=== PATIENT | female | born 1985 | race Caucasian/White ===

== ENCOUNTER → 2018-12-21 | Outpatient (CLI) | payer OTHER ==
[2018-12-21 16:34] LABS: BASO # 0.1 10^3/uL (0.0-0.2); BASO % 0.9 % (0.0-1.0); EOS # 0.1 10^3/uL (0.0-0.50); EOS % 0.7 % (0.0-3.0); HEMATOCRIT 44.3 % (36.0-47.0); HEMOGLOBIN 14.5 g/dl (12.0-15.5); LYMPH # 1.6 10^3/uL (1.5-4.5); LYMPH % 23.3 % (24.0-44.0); MEAN CORPUSCULAR HEMOGLOBIN 29.7 pg (27.0-33.0); MEAN CORPUSCULAR HGB CONC 32.7 g/dl (32.0-36.5); MEAN CORPUSCULAR VOLUME 90.8 fl (80.0-96.0); MONO # 0.5 10^3/uL (0.0-0.8); MONO % 7.7 % (0.0-5.0); NEUTROPHILS # 4.7 10^3/uL (1.8-7.7); NEUTROPHILS % 66.8 % (36.0-66.0); PLATELET COUNT, AUTOMATED 345 10^3/uL (150-450); RED BLOOD COUNT 4.88 10^6/uL (4.00-5.40)
[2018-12-21 16:45] LABS: ALT/SGPT 20 U/L (12-78); BILIRUBIN,TOTAL 0.5 MG/DL (0.2-1.0); BLOOD UREA NITROGEN 13 MG/DL (7-18); CALCIUM LEVEL 8.4 MG/DL (8.5-10.1); CARBON DIOXIDE LEVEL 26 MEQ/L (21-32); CHLORIDE LEVEL 104 MEQ/L (98-107); CREATININE FOR GFR 0.71 MG/DL (0.55-1.30); FERRITIN 24 NG/ML (8-252); FREE T3 2.8 PG/ML (2.2-4.0); GLOMERULAR FILTRATION RATE > 60.0 (>60); GLUCOSE, FASTING 89 MG/DL (70-100); IRON (FE) 105 UG/DL (50-170); PERCENT SATURATION 22.8 % (13.2-45.0); POTASSIUM SERUM 4.5 MEQ/L (3.5-5.1); SODIUM LEVEL 137 MEQ/L (136-145); TOTAL IRON BINDING CAPACITY 461 UG/DL (250-450); TOTAL PROTEIN 7.5 GM/DL (6.4-8.2)
== END ==
LOC: M LRY 09:36
PROVIDERS: ATTEND Family Medicine
DX: E03.9 Hypothyroidism, unspecified (principal); N94.6 Dysmenorrhea, unspecified

== ENCOUNTER → 2018-12-31 | Outpatient (CLI) | payer OTHER ==
--- NOTE | 2019-01-04 08:45 | SLEEPHOME ---
DATE OF STUDY: 12/31/2018 ORDERED BY: MELISA Wright Diagnostic home sleep testing was performed due to concern for the obstructive sleep apnea syndrome in this patient with excessive somnolence and [place] sleepiness score of 9. For testing, a nocturnal T3 respiratory monitoring device was used. Continuous record was made of pulse, oxygen saturation, airflow, chest and abdominal strain and body position. 11 hours and 30 minutes of data were reviewed. There were 8 hours and 10 minutes marked as time in bed. During the interval marked time in bed, there were 45 respiratory events identified of 10 seconds in duration or greater for a respiratory event index of 5.5. The events were primarily obstructive and more frequently associated with the supine posture. Baseline saturation was 94% and saturations fell briefly to 89%. Testing was performed in both the supine and nonsupine positions. IMPRESSION: Abnormal home sleep testing with repetitive respiratory events and oxygen desaturations to 89% with a respiratory event index of 5.5 is consistent with the obstructive sleep apnea syndrome. RECOMMENDATION: As the patient's events are primarily associated with the supine posture, sleep position retraining for avoidance of the supine posture may be sufficient to address the problem. If symptoms persist, the patient should be encouraged to undergo formal sleep evaluation.
== END ==
LOC: M SLEEP HO 12-26 09:48 → EDUNIT# 12-26 10:00 → M SLEEP HO 11:27
PROVIDERS: ATTEND Physician Assistant
DX: G47.8 Other sleep disorders (principal)

== ENCOUNTER → 2019-03-14 | Outpatient (CLI) | payer OTHER ==
[2019-03-14 17:08] LABS: BLOOD UREA NITROGEN 11 MG/DL (7-18); CALCIUM LEVEL 8.6 MG/DL (8.5-10.1); CARBON DIOXIDE LEVEL 26 MEQ/L (21-32); CHLORIDE LEVEL 108 MEQ/L (98-107); CREATININE FOR GFR 0.78 MG/DL (0.55-1.30); FREE T4 1.05 NG/DL (0.76-1.46); GLOMERULAR FILTRATION RATE > 60.0 (>60); GLUCOSE, FASTING 87 MG/DL (70-100); POTASSIUM SERUM 4.1 MEQ/L (3.5-5.1); SODIUM LEVEL 140 MEQ/L (136-145); THYROID STIMULATING HORMONE 0.445 uIU/ML (0.358-3.740)
[2019-03-14 17:10] LABS: TOTAL 25(OH) VITAMIN D 26.9 NG/ML (30.0-100.0)
[2019-03-18 07:22] LABS: THYROID STIMULATING IMMUNOGLOB <0.10 IU/L (0.00-0.55); TSH RECEPTOR ASSAY <1.10 IU/L (0.00-1.75)
== END ==
LOC: M LRY 14:25
PROVIDERS: ATTEND Internal Medicine Endocrinology, Diabetes & Metabolism
DX: E89.0 Postprocedural hypothyroidism (principal); E83.51 Hypocalcemia

== ENCOUNTER → 2019-05-13 | Outpatient (CLI) | payer OTHER ==
[2019-05-13 17:05] LABS: FREE T4 1.13 NG/DL (0.76-1.46); THYROID STIMULATING HORMONE 7.27 uIU/ML (0.358-3.740)
== END ==
LOC: M LRY 11:07
PROVIDERS: ATTEND Nurse Practitioner Family
DX: E89.0 Postprocedural hypothyroidism (principal)

== ENCOUNTER → 2019-05-21 | Outpatient (CLI) | payer OTHER | LOC: M RADPRO 07:36 | PROVIDERS: ATTEND Obstetrics & Gynecology | DX: N97.9 Female infertility, unspecified (principal); Z53.8 Procedure and treatment not carried out for other reasons ==

== ENCOUNTER → 2019-05-28 | Outpatient (CLI) | payer OTHER ==
--- NOTE | 2019-05-29 08:52 | REP ---
Transvaginal Hysterosonography: History: Infertility. Findings: Transvaginal sonographic dimensions of the uterus are 7.9 x 3.8 x 5.1 cm. Endometrial echo is 0.6 cm in thickness. There is evidence of an anterior myometrial scar at the lower uterine segment from previous . The endometrial cavity is normal with saline distension during the Hysterosonography injection performed by Dr. Post. Normal ovaries are seen. Right ovary measures 2.6 x 2.5 x 2.5 cm. Left ovary dimensions are 2.6 x 2.0 x 2.0 cm. Impression: Prior scar lower uterine segment. Otherwise unremarkable. Electronically Signed by Jose Eduardo Quezada MD 05/29/2019 09:26 A
== END ==
LOC: M RADPRO 11:59
PROVIDERS: ATTEND Obstetrics & Gynecology
DX: N97.9 Female infertility, unspecified (principal)

== ENCOUNTER → 2019-06-19 | Outpatient (CLI) | payer OTHER ==
--- NOTE | 2019-06-19 11:52 | REP ---
Transvaginal pelvic sonography: History: Ovarian follicle study. Findings: Uterine dimensions are 10.2 x 3.6 x 5.4 cm. Endometrial stripe is 1.1 cm thick and centrally placed. No focal uterine mass seen. No free fluid is noted. Right ovary measures 2.0 x 1.5 x 1.7 cm in overall dimension. There are no follicles in the right ovary over a centimeter. There are multiple subcentimeter follicles in the right ovary. The overall dimensions of the left ovary are 3.3 x 1.5 x 2.5 cm. There are no follicles greater than a centimeter in the left ovary. There are multiple subcentimeter follicles in the left ovary. Impression: Ovarian follicle study as above. No follicles in either ovary measuring greater than 1 cm. Electronically Signed by Jose Eduardo Qeuzada MD 06/19/2019 11:44 A
== END ==
LOC: M WHC 09:06
PROVIDERS: ATTEND Obstetrics & Gynecology Reproductive Endocrinology
DX: N97.1 Female infertility of tubal origin (principal)

== ENCOUNTER → 2019-07-01 | Outpatient (CLI) | payer OTHER | LOC: M LAB 06:48 | PROVIDERS: ATTEND Obstetrics & Gynecology Reproductive Endocrinology | DX: N91.1 Secondary amenorrhea (principal) ==

== ENCOUNTER → 2019-07-03 | Outpatient (CLI) | payer OTHER | LOC: M LAB 07:42 | PROVIDERS: ATTEND Obstetrics & Gynecology Reproductive Endocrinology | DX: N91.1 Secondary amenorrhea (principal) ==

== ENCOUNTER → 2019-07-11 | Outpatient (CLI) | payer OTHER ==
[~2019-07-11] MED LIST: ESTR1DIS; KEFL500C17 PO; PROG50IN5; prenatal
[2019-07-11 12:07] LABS: FREE T4 1.22 NG/DL (0.76-1.46); THYROID STIMULATING HORMONE 1.85 uIU/ML (0.358-3.740)
== END ==
LOC: M LRY 10:02
PROVIDERS: ATTEND Nurse Practitioner Family
DX: E89.0 Postprocedural hypothyroidism (principal)

== ENCOUNTER 2019-07-15 15:09 | Emergency (ER) | payer OTHER ==
[~2019-07-15] VITALS: Ht 162.6 cm; Wt 95.6 kg
[2019-07-15] MEDS ORDERED: prenatal (15:16)
[2019-07-15] MEDS ORDERED: PROG50IN5 (15:16)
[2019-07-15] MEDS ORDERED: ESTR1DIS (15:16)
[2019-07-15 16:12] LABS: BASO % 0.3 % (0.0-1.0); EOS # 0.2 10^3/uL (0.0-0.5); EOS % 1.7 % (0.0-3.0); LYMPH # 1.9 10^3/uL (1.5-5.0); LYMPH % 17.3 % (24.0-44.0); MEAN CORPUSCULAR HEMOGLOBIN 30.4 pg (27.0-33.0); MEAN CORPUSCULAR HGB CONC 34.1 g/dl (32.0-36.5); MEAN CORPUSCULAR VOLUME 89.1 fl (80.0-96.0); MONO # 0.7 10^3/uL (0.0-0.8); MONO % 6.5 % (0.0-5.0); NEUTROPHILS # 8.1 10^3/uL (1.5-8.5); NEUTROPHILS % 73.9 % (36.0-66.0); PLATELET COUNT, AUTOMATED 394 10^3/uL (150-450); WHITE BLOOD COUNT 10.9 10^3/uL (4.0-10.0)
--- NOTE | 2019-07-15 16:37 | REP ---
Clinical: Dating and viability. Technique: Transabdominal and transvaginal first trimester obstetrical ultrasound with color Doppler evaluation. Findings: Heterogeneous anteverted uterus measures 10.9 x 4.4 x 6.1 cm. Two separate gestational sacs are identified into which contains a yolk sac but no pole. Mean sac diameter of gestational sac A measures 5.8 mm and 5 weeks 2 days gestational age. Mean sac diameter of gestational sac B measures 9.6 mm at 5 weeks 5 days gestational age. Impression: Findings suggest early diamniotic dichorionic twin gestation. No pole yet identified in either gestational sac. Correlation with serial HCG levels and follow-up ultrasound recommended. Electronically Signed by Tom López MD 07/15/2019 04:27 P
[2019-07-15] MEDS ORDERED: KEFL500C17 PO (17:17)
[2019-07-15 17:27] VITALS: BP 137/83
== END 2019-07-15 17:29 | disposition home or self-care (01) ==
LOC: M ED 15:09
DX: O20.9 Hemorrhage in early pregnancy, unspecified (principal); O23.41 Unspecified infection of urinary tract in pregnancy, first trimester; O30.041 Twin pregnancy, dichorionic/diamniotic, first trimester; Z3A.01 Less than 8 weeks gestation of pregnancy

== ENCOUNTER → 2019-07-17 | Outpatient (CLI) | payer OTHER | LOC: M PLALAB 11:59 | PROVIDERS: ATTEND Obstetrics & Gynecology | DX: Z32.00 Encounter for pregnancy test, result unknown (principal) ==

== ENCOUNTER 2019-07-20 15:19 | Emergency (ER) | payer OTHER ==
[~2019-07-20] VITALS: Ht 162.6 cm; Wt 95.8 kg
[2019-07-20 16:21] LABS: BASO # 0.1 10^3/uL (0.0-0.2); BASO % 0.5 % (0.0-1.0); EOS # 0.1 10^3/uL (0.0-0.5); EOS % 0.9 % (0.0-3.0); HEMATOCRIT 41.1 % (36.0-47.0); HEMOGLOBIN 13.8 g/dl (12.0-15.5); LYMPH # 1.5 10^3/uL (1.5-5.0); LYMPH % 13.8 % (24.0-44.0); MEAN CORPUSCULAR HEMOGLOBIN 29.9 pg (27.0-33.0); MEAN CORPUSCULAR HGB CONC 33.6 g/dl (32.0-36.5); MEAN CORPUSCULAR VOLUME 89.2 fl (80.0-96.0); MONO # 0.7 10^3/uL (0.0-0.8); MONO % 6.7 % (0.0-5.0); NEUTROPHILS # 8.5 10^3/uL (1.5-8.5); NEUTROPHILS % 77.6 % (36.0-66.0); PLATELET COUNT, AUTOMATED 382 10^3/uL (150-450); RED BLOOD COUNT 4.61 10^6/uL (4.00-5.40); WHITE BLOOD COUNT 10.9 10^3/uL (4.0-10.0)
[2019-07-20 17:31] VITALS: BP 125/79
[2019-07-20 18:50] LABS: CHLAMYDIA DNA AMPLIFICATION NEGATIVE (NEGATIVE); GC DNA AMPLIFICATION NEGATIVE (NEGATIVE)
== END 2019-07-20 17:35 | disposition home or self-care (01) ==
LOC: M ED 15:19
DX: O20.0 Threatened abortion (principal); O99.511 Diseases of the respiratory system complicating pregnancy, first trimester; J45.909 Unspecified asthma, uncomplicated; Z3A.01 Less than 8 weeks gestation of pregnancy

== ENCOUNTER → 2019-07-22 | Outpatient (CLI) | payer OTHER ==
--- NOTE | 2019-07-22 12:42 | REP ---
TWIN OB ULTRASOUND: Real-time sonographic evaluation of the gravid uterus is performed utilizing transabdominal and endovaginal technique. There is a living intrauterine diamniotic dichorionic twin gestation. Estimated gestational age based on last menstrual period is 6 weeks 5 days, EDC 03/15/2020. Today's measurements indicate appropriate growth of both twins. Fetus A has a crown-rump length of 4 mm corresponding to 6 weeks 1 day gestational age, heart rate 130 beats per minute. Fetus B crown-rump length 4 mm equals 6 weeks 0 days, heart rate 146 beats per minute. Cervix is closed and measures 3.6 cm in length. There is no subchorionic hemorrhage. No maternal adnexal region abnormality is seen.
== END ==
LOC: M WHC 09:03
PROVIDERS: ATTEND Obstetrics & Gynecology
DX: Z32.01 Encounter for pregnancy test, result positive (principal); Z3A.01 Less than 8 weeks gestation of pregnancy

== ENCOUNTER → 2019-07-23 | Outpatient (REF) | payer OTHER ==
[2019-07-23 13:47] LABS: HEMATOCRIT 41.8 % (36.0-47.0); MEAN CORPUSCULAR HEMOGLOBIN 30.2 pg (27.0-33.0); MEAN CORPUSCULAR HGB CONC 33.5 g/dl (32.0-36.5); MEAN CORPUSCULAR VOLUME 90.3 fl (80.0-96.0); PLATELET COUNT, AUTOMATED 365 10^3/uL (150-450); RED BLOOD COUNT 4.63 10^6/uL (4.00-5.40); WHITE BLOOD COUNT 8.6 10^3/uL (4.0-10.0)
[2019-07-23 14:07] LABS: CREATININE,RANDOM URINE 30.7 MG/DL; TOTAL PROTEIN,RANDOM URINE < 5.0 MG/DL (0.0-12.0)
[2019-07-23 14:19] LABS: ALT/SGPT 22 U/L (12-78); BILIRUBIN,TOTAL 0.5 MG/DL (0.2-1.0); FREE T4 1.23 NG/DL (0.76-1.46); GLOMERULAR FILTRATION RATE > 60.0 (>60); LDH LACTATE DEHYDROGENASE 128 U/L (84-246); URIC ACID 4.4 MG/DL (2.6-6.0)
[2019-07-23 15:25] LABS: CHLAMYDIA DNA AMPLIFICATION NEGATIVE (NEGATIVE); GC DNA AMPLIFICATION NEGATIVE (NEGATIVE)
[2019-07-24 11:36] LABS: HEPATITIS B SURFACE ANTIGEN NEGATIVE (NEGATIVE); RUBELLA IgG QUALITATIVE IMMUNE (IMMUNE)
[2019-07-24 12:04] LABS: HEPATITIS C VIRUS ABY INDEX 0.1 INDEX (<0.8)
[2019-07-24 12:05] LABS: HIV 1&2 SCREEN CENTAUR NEGATIVE (NEGATIVE)
== END ==
LOC: M PLALAB 10:29
PROVIDERS: ATTEND Obstetrics & Gynecology
DX: O30.041 Twin pregnancy, dichorionic/diamniotic, first trimester (principal); O99.281 Endocrine, nutritional and metabolic diseases complicating pregnancy, first trimester; Z3A.00 Weeks of gestation of pregnancy not specified

== ENCOUNTER → 2019-08-16 | Outpatient (CLI) | payer OTHER ==
[2019-08-16 13:33] LABS: CALCIUM LEVEL 8.3 MG/DL (8.5-10.1); FREE T4 1.14 NG/DL (0.76-1.46); THYROID STIMULATING HORMONE 1.84 uIU/ML (0.358-3.740)
== END ==
LOC: M PLALAB 11:17
PROVIDERS: ATTEND Nurse Practitioner Family
DX: E83.51 Hypocalcemia (principal); E89.0 Postprocedural hypothyroidism

== ENCOUNTER → 2019-09-03 | Outpatient (CLI) | payer OTHER ==
[~2019-09-03] MED LIST changes: +CALC1CAP31 PO; +LEVO125T4; +holter monitor; +prenatal PO
[2019-09-03 13:08] LABS: CALCIUM LEVEL 8.7 MG/DL (8.5-10.1); FREE T4 1.26 NG/DL (0.76-1.46); THYROID STIMULATING HORMONE 2.41 uIU/ML (0.358-3.740)
== END ==
LOC: M PLALAB 11:24
PROVIDERS: ATTEND Nurse Practitioner Family
DX: E89.0 Postprocedural hypothyroidism (principal); E83.51 Hypocalcemia
CPT/HCPCS: 36415; 82310; 84439; 84443; G0463

== ENCOUNTER 2019-09-05 10:49 | Emergency (ER) | payer OTHER ==
[~2019-09-05] VITALS: Ht 162.6 cm; Wt 94.4 kg
[~2019-09-05 10:49] MED LIST changes: -CALC1CAP31 PO; -LEVO125T4; -holter monitor; -prenatal PO
[2019-09-05] MEDS ORDERED: LEVO125T4 (10:57)
[2019-09-05] MEDS ORDERED: CALC1CAP31 PO (11:06)
[2019-09-05] MEDS ORDERED: prenatal PO (11:06)
[2019-09-05] MEDS ORDERED: NS 1,000 ML IV ONE (11:15)
[2019-09-05] MEDS ORDERED: METOCLOPRAMIDE INJ 10MG/2ML VIAL (J2765 PER 1) IV ONE (11:15)
[2019-09-05 11:30] LABS: BASO % 0.2 % (0.0-1.0); EOS % 0.1 % (0.0-3.0); HEMATOCRIT 38.4 % (36.0-47.0); HEMOGLOBIN 13.3 g/dl (12.0-15.5); LYMPH # 0.9 10^3/uL (1.5-5.0); MEAN CORPUSCULAR HEMOGLOBIN 30.5 pg (27.0-33.0); MEAN CORPUSCULAR HGB CONC 34.6 g/dl (32.0-36.5); MEAN CORPUSCULAR VOLUME 88.1 fl (80.0-96.0); MONO # 0.4 10^3/uL (0.0-0.8); MONO % 3.7 % (0.0-5.0); NEUTROPHILS # 10.1 10^3/uL (1.5-8.5); NEUTROPHILS % 87.5 % (36.0-66.0); PLATELET COUNT, AUTOMATED 301 10^3/uL (150-450); RED BLOOD COUNT 4.36 10^6/uL (4.00-5.40); WHITE BLOOD COUNT 11.5 10^3/uL (4.0-10.0)
[2019-09-05 12:07] LABS: ALBUMIN 3.1 GM/DL (3.2-5.2); ALT/SGPT 14 U/L (12-78); BILIRUBIN,DIRECT 0.1 MG/DL (0.0-0.2); BILIRUBIN,TOTAL 0.4 MG/DL (0.2-1.0); BLOOD UREA NITROGEN 7 MG/DL (7-18); CALCIUM LEVEL 8.5 MG/DL (8.5-10.1); CARBON DIOXIDE LEVEL 23 MEQ/L (21-32); CHLORIDE LEVEL 106 MEQ/L (98-107); CREATININE FOR GFR 0.49 MG/DL (0.55-1.30); GLOMERULAR FILTRATION RATE > 60.0 (>60); GLUCOSE, FASTING 95 MG/DL (70-100); MAGNESIUM LEVEL 1.6 MG/DL (1.8-2.4); POTASSIUM SERUM 3.9 MEQ/L (3.5-5.1); SODIUM LEVEL 138 MEQ/L (136-145); TOTAL PROTEIN 6.6 GM/DL (6.4-8.2)
[2019-09-05 12:31] LABS: APPEARANCE, URINE HAZY (CLEAR); BACTERIA, URINE AUTO 2+ (NEGATIVE); BILIRUBIN, URINE AUTO NEGATIVE (NEGATIVE); BLOOD, URINE BLOOD NEGATIVE (NEGATIVE); COLOR, URINE YELLOW (YELLOW); GLUCOSE, URINE (UA) AUTO NEGATIVE (NEGATIVE); KETONE, URINE AUTO 2+ mg/dL (NEGATIVE); LEUKOCYTE ESTERASE, URINE AUTO NEGATIVE (NEGATIVE); MUCUS, URINE SMALL (NEGATIVE); NITRITE, URINE AUTO NEGATIVE (NEGATIVE); PROTEIN, URINE AUTO NEGATIVE (NEGATIVE); RBC, URINE AUTO 1 /HPF (0-3); SPECIFIC GRAVITY URINE AUTO 1.017 (1.002-1.035); SQUAMOUS EPITHELIAL CELL UR AU 1 /HPF (0-6); UROBILINOGEN, URINE AUTO 0.2 mg/dL (0.0-2.0); WBC, URINE AUTO 3 /HPF (0-3)
[2019-09-05] MEDS ORDERED: ACETAMINOPHEN 325 MG TAB PO ONE (12:45)
[2019-09-05] MEDS ORDERED: MAG SULF 1GM/100ML (MAG RUN) 1 GM in IV 1 EA IV ONE (12:45)
[2019-09-05] MEDS ORDERED: KEFL500C17 PO (14:50)
[2019-09-05] MEDS ORDERED: holter monitor (14:51)
[2019-09-05 15:17] VITALS: BP 135/86
--- NOTE | 2019-09-05 22:14 | ECGEPIP ---
[facility] - ED Test Date: 2019-09-05 Pat Name: RAINE MCKENZIE Department: Room: - Gender: Female Displayer: marina : 1985 Requested By: Yarelis Roa Order Number: [id number] Reading MD: Derek Rosario Measurements Intervals [place] Rate: 85 P: 21 KS: 120 QRS: 52 QRSD: 81 T: 4 QT: 364 QTc: 433 Interpretive Statements SINUS RHYTHM NSTTW ABNORMALITIES NO PRIORS FOR COMPARISON Electronically Signed on 09-05-2019 22:14:33 EDT by Derek Rosario
== END 2019-09-05 15:21 | disposition home or self-care (01) ==
LOC: M ED 10:49
DX: O99.89 Other specified diseases and conditions complicating pregnancy, childbirth and the puerperium (principal); R00.2 Palpitations; O99.511 Diseases of the respiratory system complicating pregnancy, first trimester; J45.909 Unspecified asthma, uncomplicated; O99.281 Endocrine, nutritional and metabolic diseases complicating pregnancy, first trimester; E05.00 Thyrotoxicosis with diffuse goiter without thyrotoxic crisis or storm; Z3A.13 13 weeks gestation of pregnancy; Z79.899 Other long term (current) drug therapy; Z79.890 Hormone replacement therapy
CPT/HCPCS: 80048; 80076; 81001; 83735; 84443; 85025; 87086; 93005; 93041; 94760; 96361; 96365; 96375; 99285; J2765; J3475

== ENCOUNTER → 2019-09-09 | Outpatient (CLI) | payer OTHER ==
[~2019-09-09] MED LIST changes: +CALC1CAP31 PO; +LEVO125T4; +holter monitor; +prenatal PO
--- NOTE | 2019-09-11 10:12 | HOLTMON ---
[facility] Test Date: 2019-09-09 Pat Name: RAINE MCKENZIE Department: Room: - Gender: Female Business Relations Manager: DARINEL GUZMAN : 1985 Requested By: Yarelis Roa Order Number: [id number] Reading MD: Tatum Munoz Interpretive Statements A LOT OF ARTIFACT THROUGH OUT HOLTER PATIENT STATES THAT SHE DIDN'T HAVE HER USUAL SYMPTOMS BUT FELT LIKE HER HEART WAS BEATING OUT OF HER CHEST Avg HR 89 Min 58 Max 156 Sinus throughout Multiple PACs Short runs (less than 5) Multiple diary entires one with a PAC and others with Sinus tacycardia Variable ST depression in leads II and III throughout rare PVC Electronically Signed on 09-11-2019 10:11:58 EDT by Tatum Munoz
== END ==
LOC: M EKG 09:03
PROVIDERS: ATTEND Emergency Medicine
DX: R00.2 Palpitations (principal)

== ENCOUNTER → 2019-10-10 | Outpatient (CLI) | payer OTHER ==
[2019-10-10 13:51] LABS: FREE T4 1.05 NG/DL (0.76-1.46); THYROID STIMULATING HORMONE 3.34 uIU/ML (0.358-3.740)
== END ==
LOC: M PLALAB 10:39
PROVIDERS: ATTEND Nurse Practitioner Family
DX: E89.0 Postprocedural hypothyroidism (principal)
CPT/HCPCS: 36415; 84439; 84443; G0463

== ENCOUNTER → 2019-11-01 | Outpatient (REF) | payer OTHER ==
[~2019-11-01] MED LIST changes: +LEVO137T2 PO
== END ==
LOC: M SFHCWAGY 17:10
PROVIDERS: ATTEND Advanced Practice Midwife
DX: Z36.89 Encounter for other specified antenatal screening (principal); Z3A.21 21 weeks gestation of pregnancy

== ENCOUNTER → 2019-11-08 | Outpatient (CLI) | payer OTHER ==
--- NOTE | 2019-11-09 08:13 | REP ---
TWIN OB ULTRASOUND: Real-time sonographic evaluation of gravid uterus performed utilizing transabdominal and endovaginal technique and demonstrates a living diamniotic, dichorionic twin gestation. Placentas are posterior for Fetus A and anterior for Fetus B, grade 1, with no previa or abruption. Cervix is closed and measures 4.9 cm in length measured transvaginally. There is concordant growth of each twin, with estimated gestational age established at 22 weeks 2 days, EDC 03/11/2020. FETUS A: BPD 54 mm = 22 weeks 3 days, 53rd percentile HC 196 mm = 21 weeks 6 days, 36th percentile AC 164 mm = 21 weeks 3 days, 31st percentile Femur length 38 mm = 22 weeks 0 days, 43rd percentile HC/AC ratio 1.20, within normal range of 1.04 to 1.23 Estimated weight 446 grams, 28th percentile. heart rate 149 beats per minute. SEEN/GROSSLY UNREMARKABLE Lateral ventricles Yes Posterior fossa Yes Upper lip Yes Four-chamber heart No LVOT No RVOT No Stomach Yes Cord insertion Yes Three vessel cord Yes Kidneys Yes Bladder Yes Spine Yes position is transverse with head toward the maternal left side. Amniotic fluid within normal limits. FETUS B: BPD 52 mm = 21 weeks 5 days, 33rd percentile HC 195 mm = 21 weeks 5 days, 32nd percentile AC 173 mm = 22 weeks 2 days, 48th percentile Femur length 40 mm = 22 weeks 6 days, 64th percentile HC/AC ratio 1.13, within normal range of 1.04 to 1.23 Estimated weight 500 grams, 48th percentile. heart rate 149 beats per minute. SEEN/GROSSLY UNREMARKABLE Lateral ventricles Yes Posterior fossa Yes Upper lip Yes Four-chamber heart Yes LVOT Yes RVOT Yes Stomach Yes Cord insertion Yes Three vessel cord Yes Kidneys Yes Bladder Yes Spine No position variable on the maternal right side. Amniotic fluid appears within normal limits.
== END ==
LOC: M WHC 13:40
PROVIDERS: ATTEND Obstetrics & Gynecology
DX: O30.042 Twin pregnancy, dichorionic/diamniotic, second trimester (principal); Z3A.22 22 weeks gestation of pregnancy; O34.211 Maternal care for low transverse scar from previous cesarean delivery

== ENCOUNTER → 2019-11-12 | Outpatient (CLI) | payer OTHER ==
[2019-11-12 15:57] LABS: FREE T4 1.04 NG/DL (0.76-1.46); THYROID STIMULATING HORMONE 0.593 uIU/ML (0.358-3.740)
== END ==
LOC: M PLALAB 13:46
PROVIDERS: ATTEND Nurse Practitioner Family
DX: E89.0 Postprocedural hypothyroidism (principal); O30.042 Twin pregnancy, dichorionic/diamniotic, second trimester

== ENCOUNTER → 2019-12-03 | Outpatient (REF) | payer OTHER ==
[2020-01-05 10:55] LABS: BASO % 0.3 % (0.0-1.0); EOS % 0.3 % (0.0-3.0); HEMATOCRIT 33.9 % (36.0-47.0); HEMOGLOBIN 11.3 g/dl (12.0-15.5); LYMPH % 9.7 % (24.0-44.0); MEAN CORPUSCULAR HEMOGLOBIN 30.7 pg (27.0-33.0); MEAN CORPUSCULAR HGB CONC 33.3 g/dl (32.0-36.5); MEAN CORPUSCULAR VOLUME 92.1 fl (80.0-96.0); MONO # 0.7 10^3/uL (0.0-0.8); MONO % 6.3 % (0.0-5.0); NEUTROPHILS # 8.7 10^3/uL (1.5-8.5); PLATELET COUNT, AUTOMATED 293 10^3/uL (150-450); RED BLOOD COUNT 3.68 10^6/uL (4.00-5.40); WHITE BLOOD COUNT 10.6 10^3/uL (4.0-10.0)
== END ==
LOC: M SFHCWAGY 16:53
PROVIDERS: ATTEND Specialist
DX: Z34.90 Encounter for supervision of normal pregnancy, unspecified, unspecified trimester (principal)
CPT/HCPCS: 36415; 85025; 86850; 86900; 86901; G0463

== ENCOUNTER → 2019-12-17 | Outpatient (CLI) | payer OTHER ==
[2019-12-17 19:53] LABS: CALCIUM LEVEL 8.5 MG/DL (8.5-10.1); FREE T4 1.08 NG/DL (0.76-1.46); THYROID STIMULATING HORMONE 0.267 uIU/ML (0.358-3.740)
== END ==
LOC: M PLALAB 14:14
PROVIDERS: ATTEND Internal Medicine Endocrinology, Diabetes & Metabolism
DX: E89.0 Postprocedural hypothyroidism (principal); E83.51 Hypocalcemia

== ENCOUNTER → 2019-12-26 | Outpatient (CLI) | payer OTHER ==
--- NOTE | 2020-01-22 13:01 | REP ---
LIMITED OBSTETRICAL ULTRASOUND TWIN GESTATION CLINICAL: Growth evaluation. COMPARISON: 11/08/2019. TECHNIQUE: Transabdominal obstetrical ultrasound with color Doppler evaluation. FINDINGS: Ultrasound examination again demonstrates diamniotic dichorionic twin gestation. The cervix measures 4 cm in length and appears closed. FETUS A: Fetus A identified in breech presentation closest to the cervix. The placenta is noted posteriorly and grade 1 without evidence for placenta previa or abruption. The amniotic fluid volume is normal and the deepest pocket measures 7.3 cm. heart rate equals 146 beats per minute. A MEASUREMENTS: BPD 75 mm 30 weeks 0 days HC 264 mm 28 weeks 5 days AC 261 mm 30 weeks 2 days FL 54 mm 28 weeks 6 days HL 50 mm 29 weeks 2 days Estimated age by current measurements 29 weeks 4 days with estimated date of delivery 03/08/2020. Estimated weight 1420 grams (54th percentile). Anatomical assessment demonstrates normal stomach, kidneys/bladder, three-vessel cord, and cord insertion. Limited evaluation of the heart and ventricular outflow tracts again noted. FETUS B: Fetus B identified in transverse lie with head to maternal right superiorly within the uterus. The placenta is noted anterior fundal and grade 1 without evidence for placenta previa or abruption. The amniotic fluid volume is normal and the deepest pocket measures 7.3 cm. heart rate equals 146 beats per minute. B MEASUREMENTS: BPD 72 mm 29 weeks 1 day HC 261 mm 28 weeks 3 days AC 243 mm 28 weeks 5 days FL 58 mm 30 weeks 2 days HL 49 mm 28 weeks 6 days Estimated age by current measurements 29 weeks 1 day with estimated date of delivery 03/11/2020. Estimated weight 1343 grams (37th percentile). Anatomical assessment demonstrates normal spine, stomach, kidney/bladder, and three-vessel cord. IMPRESSION: * Diamniotic dichorionic twin gestation demonstrating appropriate interval growth and concordant growth. * Twin A again demonstrates limited evaluation of the heart and ventricular outflow tracts due to positioning. * Twin B demonstrates normal images of the spine and in conjunction with prior examination, twin B anatomical assessment is complete. [facility]
== END ==
LOC: M WHC 13:50
PROVIDERS: ATTEND Specialist
DX: O30.043 Twin pregnancy, dichorionic/diamniotic, third trimester (principal); Z3A.29 29 weeks gestation of pregnancy; O32.1XX1 Maternal care for breech presentation, fetus 1

== ENCOUNTER → 2020-01-14 | Outpatient (CLI) | payer OTHER ==
[2020-01-14 14:14] LABS: THYROID STIMULATING HORMONE 0.726 uIU/ML (0.358-3.740)
== END ==
LOC: M PLALAB 09:55
PROVIDERS: ATTEND Nurse Practitioner Family
DX: E89.0 Postprocedural hypothyroidism (principal)

== ENCOUNTER → 2020-01-20 | Outpatient (CLI) | payer OTHER ==
--- NOTE | 2020-01-29 08:34 | REP ---
TWIN OB ULTRASOUND HISTORY: Evaluate growth and biophysical profile. TECHNIQUE: Real-time ultrasound evaluation of the gravid uterus is performed. FINDINGS: There is a living intrauterine diamniotic dichorionic twin gestation. Estimated gestational age is reportedly 32 weeks 5 days, estimated date of confinement (EDC) 03/11/2020. Todays measurements indicate appropriate concordant growth for each twin. The placenta for twin A is anterior and grade 1 and for twin B is posterior and grade 1. There is no evidence of placenta previa or abruption. Cervix is closed and measures 3 cm in length. FETUS A: position breech on the maternal left side. A three-vessel umbilical cord is seen. The heart rate is 143 beats per minute. The amniotic fluid is within normal limits, deepest pocket of fluid around fetus A is 4.4 cm. biophysical profile score is 8/8. FETUS A BIOMETRY CHART: BPD 81 mm 32 weeks 4 days 49th percentile HC 301 mm 33 weeks 5 days 65th percentile AC 297 mm 33 weeks 5 days 56th percentile Femur length 63 mm 32 weeks 3 days 46th percentile AC/HC ratio 1.02 Within normal range 0.95 1.14 Estimated weight 2151 grams 58th percentile S/D ratio umbilical artery 2.1 to 2.4 Within normal range There is an anechoic simple appearing cystic structure with a thin wall adjacent to the bladder within the pelvis of fetus A. This measures 1.8 x 1.6 x 1.9 cm and likely represents a maturing ovarian follicle. Recommend follow- up. FETUS B: position is transverse on the maternal right side. Three vessel umbilical cord is seen. heart rate is 150 beats per minute. Amniotic fluid appears within normal limits, deepest pocket of fluid surrounding fetus B is 4.9 cm. Biophysical profile score 8/8. FETUS B BIOMETRY CHART: BPD 80 mm 32 weeks 0 days 39th percentile HC 296 mm 32 weeks 5 days 51st percentile AC 286 mm 32 weeks 4 days 48th percentile Femur length 62 mm 32 weeks 2 days 43rd percentile AC/HC ratio 1.04 Within normal range 0.95 1.14 Estimated weight 1974 grams 32nd percentile S/D ratio umbilical artery 2.7 to 2.9 Within normal range [facility]
== END ==
LOC: M WHC 10:37
PROVIDERS: ATTEND Obstetrics & Gynecology
DX: O30.043 Twin pregnancy, dichorionic/diamniotic, third trimester (principal); Z3A.32 32 weeks gestation of pregnancy; O32.1XX1 Maternal care for breech presentation, fetus 1

== ENCOUNTER → 2020-01-24 | Outpatient (REF) | payer OTHER ==
[2020-01-24 14:08] LABS: HEMATOCRIT 33.3 % (36.0-47.0); HEMOGLOBIN 10.9 g/dl (12.0-15.5); MEAN CORPUSCULAR HEMOGLOBIN 29.2 pg (27.0-33.0); MEAN CORPUSCULAR HGB CONC 32.7 g/dl (32.0-36.5); MEAN CORPUSCULAR VOLUME 89.3 fl (80.0-96.0); PLATELET COUNT, AUTOMATED 236 10^3/uL (150-450); RED BLOOD COUNT 3.73 10^6/uL (4.00-5.40)
[2020-01-24 14:38] LABS: TOTAL PROTEIN,RANDOM URINE 20.1 MG/DL (0.0-12.0)
[2020-01-24 14:41] LABS: ALBUMIN 2.5 GM/DL (3.2-5.2); ALT/SGPT 12 U/L (12-78); BILIRUBIN,TOTAL 0.2 MG/DL (0.2-1.0); BLOOD UREA NITROGEN 10 MG/DL (7-18); CALCIUM LEVEL 9.2 MG/DL (8.5-10.1); CARBON DIOXIDE LEVEL 23 MEQ/L (21-32); CHLORIDE LEVEL 104 MEQ/L (98-107); CREATININE FOR GFR 0.52 MG/DL (0.55-1.30); GLOMERULAR FILTRATION RATE > 60.0 (>60); GLUCOSE, FASTING 95 MG/DL (70-100); POTASSIUM SERUM 4.3 MEQ/L (3.5-5.1); SODIUM LEVEL 137 MEQ/L (136-145); TOTAL PROTEIN 6.1 GM/DL (6.4-8.2)
== END ==
LOC: M PLALAB 10:55
PROVIDERS: ATTEND Obstetrics & Gynecology
DX: O09.293 Supervision of pregnancy with other poor reproductive or obstetric history, third trimester (principal)
CPT/HCPCS: 36415; 80053; 82570; 84156; 85027; G0463

== ENCOUNTER 2020-01-25 19:09 | Inpatient (IN) | payer OTHER ==
[~2020-01-25] VITALS: Ht 162.6 cm; Wt 104.2 kg
[~2020-01-25 19:09] MED LIST changes: -LEVO137T2 PO
[2020-01-25] MEDS ORDERED: LEVO137T2 PO (19:19)
[2020-01-25 19:26] VITALS: BP 132/76
[2020-01-25] MEDS ORDERED: AZITHROMYCIN 250MG TABLET PO ONE (20:30)
[2020-01-25 20:54] LABS: HEMATOCRIT 31.3 % (36.0-47.0); HEMOGLOBIN 10.3 g/dl (12.0-15.5); MEAN CORPUSCULAR HEMOGLOBIN 29.1 pg (27.0-33.0); MEAN CORPUSCULAR HGB CONC 32.9 g/dl (32.0-36.5); MEAN CORPUSCULAR VOLUME 88.4 fl (80.0-96.0); PLATELET COUNT, AUTOMATED 232 10^3/uL (150-450); RED BLOOD COUNT 3.54 10^6/uL (4.00-5.40); WHITE BLOOD COUNT 9.4 10^3/uL (4.0-10.0)
[2020-01-25] MEDS: AMPICILLIN SOD 2 GM in D5W MINI-BAG PLUS 100 ML IV SCH (20:55)
[2020-01-25] MEDS: BETAMETHASONE SOLUSPAN 6MG/ML 5ML VIAL (J0702 PER 3MG) IM SCH (20:55)
[2020-01-25 21:08] VITALS: BP 128/87
[2020-01-25 21:12] LABS: ALT/SGPT 14 U/L (12-78); BILIRUBIN,TOTAL 0.3 MG/DL (0.2-1.0); CREATININE FOR GFR 0.47 MG/DL (0.55-1.30); GLOMERULAR FILTRATION RATE > 60.0 (>60); LDH LACTATE DEHYDROGENASE 151 U/L (84-246); URIC ACID 6.1 MG/DL (2.6-6.0)
--- NOTE | 2020-01-25 21:31 | HPEPDOC ---
Obstetrical History & Physical General Date of Admission Jan 25, 2020 at 20:28 History of Present Illness Patient presents with complaint of large loss of clear fluid around 1700. Contractions are mild-mod in intensity and every 3-10 minutes for the last several hours. No reported fever, myalgias, chills. No VB. Reports feeling regular movement of each twin. Denies any history of GONZALEZ, visual changes, RUQ pain, sob, cp. Recent lab work wnl. Chief Complaint: LOF, pre-term Age: 34 : 2 Term: 0 Pre-term: 1 Abortions: 0 Livin Care Care: Good Care Dating Final EDC: Mar 11, 2020 Final EDC for Daily Update: Mar 11, 2020 Final EDC by: 1st trimester (US) (IVF dating) EGA at Admission: 33.3 Past Medical History Past Obstetrical History : Past Obstetrical History: Multigravida Date of Delivery: Nov 23, 2015 Gestation: 36 Type of Delivery: Ceserean section (Male and Female) Complications: Yes (Pre-eclampsia) Past Medical History Medical History Hypothyroidism Surgical History: section Family History Family History asthma, endometriosis Social History Social history no t/e/d Marital Status: Family situation: Spouse/partner home Psychosocial History: No pertinent psych hx * Smoker: non-smoker Alcohol: Denies Drugs: denies Allergies Coded Allergies: No Known Allergies (Unverified , 07/15/19) Medications Scheduled Levothyroxine Sodium (Levothyroxine Sodium) 137 Mcg Tablet, 137 MCG PO DAILY [] , 1 TAB PO DAILY Physical Examination Physical Examination GENERAL: Alert and oriented times three. BREAST: . ABDOMEN: Gravid and non-tender to touch. FETUS: Is vertex (VTX) by sterile vaginal examination (SVE), fetus is vertex (VTX) by Chepe. HEART RATE: Regular rate and rhythm. LUNGS: Clear to auscultation (CTA). EXTREMITIES: No edema. No clonus. Deep tendon reflexes (DTRs) 2+ PELVIC: grossly ruptured (+Nitrazine, ferning, and pooling), clear fluid with valsalva. No bleeding. SVE: 1cm/50%/-3, presenting twin is cephalic US,briseno: cephalic, breech. EFM: Cat I FHR x both twins Tab: ctxs every 3-7min Vital Signs/I&O see [facility] Laboratory Data 24H LABS Laboratory Tests 2 01/25/20 20:32: Serology Scanned Report Hepatitis B Testing CBC/BMP Laboratory Tests 01/25/20 20:41 Pertinent Laboratoy Data Blood Type: A+ RBC Antibody Screen: Negative HIV: Negative Hepatitis B: Negative Hepatitis C: Negative Rapid Plasma Reagin: Nonreactive Rubella: Immune Chlamydia/Gonorrhea: Negative Group B Streptococcus: Unknown Diag/Inter Therapy Di/Di IVF twins; concordant growth, known malpresentation of Twin B History of LTCS x 1 History of pre-eclampsia Hypothyroidism Anatomy Ultrasound Ultrasound Date: Dec 26, 2019 (EFW wnl, no growth restriction, malpresentation twin B) Steroid Therapy Date #1: Jan 25, 2020 Assessment/Plan Assessment Lisa is a 34-year-old (G)2 para (P)0-1-0-2 at 33+3 weeks. prelabor rupture of membranes. No evidence of IAI or active PTL. Plan Admit and orient. NICU notified Director Alumni Relations and consent. Mode of delivery plan: repeat section Timing of delivery plan: Goal of 34+0 weeks. Deliver sooner for maternal and/or indications. Tocolysis PRN Latency Abx: Azithromycin 1g PO and Ampicillin 2g IV every 6 hours corticosteroids, Betamethasone 12mg q24 x 2 doses Group B Streptococcus (GBS) pending Continuous EFM/Tab, repeat SVE PRN. CAMILLA AGUERO DO Jan 25, 2020 21:31
[2020-01-25] MEDS: NIFEdipine 10 MG CAP PO SCH (21:48)
[2020-01-25] MEDS: LR 1,000 ML IV SCH (21:48)
[2020-01-26] VITALS (14 sets, daily range): BP systolic 101–136; BP diastolic 56–83
[2020-01-26] MEDS: NIFEdipine 10 MG CAP PO SCH ×4 (04:44→21:44)
[2020-01-26] MEDS: AMPICILLIN SOD 2 GM in D5W MINI-BAG PLUS 100 ML IV SCH ×4 (04:52→22:55)
[2020-01-26] MEDS: LR 1,000 ML IV SCH ×2 (06:00→15:44)
[2020-01-26] MEDS ORDERED: TERBUTALINE SULFATE 1 MG/ML VIAL (J3105) As Ordered ONE (07:22)
[2020-01-26] MEDS ORDERED: TERBUTALINE SULFATE 1 MG/ML VIAL (J3105) SC ONE (07:30)
--- NOTE | 2020-01-26 10:00 | IPNPDOC ---
Obstetrical Progress Note Date of Service Jan 26, 2020 Subjective EGA: 33+4 weeks. Patient complaining of on/off painful uterine contractions and continued leakage of fluid. No vaginal bleeding. She has received Nifedipine 20mg PO q6h for tocolysis (to be given a 48 hour course). 1 dose of Terbutaline also given for extra symptomatic relief. Repeat SVE was done earlier this AM, and the cervix was 1cm/50/-3 (unchanged). She is currently comfortable. Objective Vital Signs Date Time Temp Pulse Resp B/P (MAP) Pulse Ox O2 Delivery O2 Flow Rate FiO2 01/26/20 09:47 116/65 01/26/20 07:09 97.9 18 01/26/20 07:01 100 Assessment Heart Rate Tracing: Category I (both twins) Tocometer Contractions: Yes Frequency: every 3-7 min. Sterile Vaginal Examination Dilation: 1cm Effacement (%): 50% Station: -3 Cervical Consistency: Medium Cervical Position: Posterior Postion/Presentation: Cephalic presentation (of presenting twin) Assessment and Plan Age: 34 : 2 Pre-term: 1 Livin Weeks & Days Vital Signs Date Time Temp Pulse Resp B/P (MAP) Pulse Ox O2 Delivery O2 Flow Rate FiO2 01/26/20 09:47 116/65 01/26/20 07:09 97.9 18 01/26/20 07:01 100 120/72 (88) 01/26/20 05:01 130 101/56 (71) 01/26/20 04:44 123/69 01/26/20 04:02 97.7 100 18 123/69 (87) 01/26/20 03:00 107 120/77 (91) 01/26/20 01:59 99 132/69 (90) 01/26/20 00:05 97.9 106 18 133/82 (99) 01/25/20 21:48 128/87 01/25/20 21:08 98.3 93 128/87 (101) 01/25/20 19:26 121 132/76 (94) Laboratory Tests 01/25/20 20:32: Serology Scanned Report Hepatitis B Testing 01/25/20 20:41: White Blood Count 9.4, Red Blood Count 3.54L, Hemoglobin 10.3L, Hematocrit 31.3L, Mean Corpuscular Volume 88.4, Mean Corpuscular Hemoglobin 29.1, Mean Corpuscular Hemoglobin Concent 32.9, Red Cell Distribution Width 13.1, Platelet Count 232, Nucleated Red Blood Cells % (auto) 0.0, Creatinine 0.47L, Glomerular Filtration Rate > 60.0, Uric Acid 6.1H, Total Bilirubin 0.3, Aspartate Amino Transf (AST/SGOT) 14, Alanine Aminotransferase (ALT/SGPT) 14, Lactate Dehydrogenase 151, Syphilis Serology [Pending] Current Medications Medications (Trade) Dose Ordered Sig/Kezia Route PRN Reason Start Time Stop Time Status Last Admin Dose Admin Betamethasone Acet/Betameth SodPhos (Celestone-Soluspan) 12 mg Q24H IM 01/25/20 20:30 01/26/20 20:31 01/25/20 20:55 12 MG Lactated Ringer's 1,000 ml @ 125 mls/hr Q8H IV 01/25/20 21:33 01/26/20 06:00 125 MLS/HR Nifedipine (Procardia) 20 mg Q6H PO 01/25/20 21:45 01/26/20 09:47 20 MG Status: Reassuring (both twins) Anticipate: Section (at 34 weeks) Additional Comments She remains stable with no evidence of IAI or active PTL. She received her first dose of Betamethasone yesterday evening. Repeat dose at 24hours. Plan is to continue our current management with the goal of delivery via at 34+0 weeks. Delivery will occur sooner for maternal or indications. Currently, status is reassuring x 2 (Cat I FHR x 2). Sabula reveals regular uterine contractions. She is requesting to take a shower. CAMILLA AGUERO DO Jan 26, 2020 09:59
[2020-01-26] MEDS ORDERED: LEVOTHYROXINE 137MCG TABLET (0.137MG) PO ONE (19:00)
[2020-01-26] MEDS: BETAMETHASONE SOLUSPAN 6MG/ML 5ML VIAL (J0702 PER 3MG) IM SCH (20:34)
[2020-01-27] VITALS (15 sets, daily range): BP systolic 104–127; BP diastolic 56–75
[2020-01-27] MEDS: LR 1,000 ML IV SCH ×3 (00:42→18:14)
[2020-01-27] MEDS: NIFEdipine 10 MG CAP PO SCH ×4 (03:53→21:51)
[2020-01-27] MEDS: LEVOTHYROXINE 137MCG TABLET (0.137MG) PO SCH (05:34)
[2020-01-27] MEDS: AMPICILLIN SOD 2 GM in D5W MINI-BAG PLUS 100 ML IV SCH ×4 (05:34→23:31)
--- NOTE | 2020-01-27 06:29 | IPNPDOC ---
Obstetrical Progress Note Date of Service Jan 27, 2020 Subjective Patient denies painful frequent uterine contractions, vaginal bleeding, or subjective fever. Normal movement x 2 Objective Vital Signs Date Time Temp Pulse Resp B/P (MAP) Pulse Ox O2 Delivery O2 Flow Rate FiO2 01/27/20 05:35 97.8 18 01/27/20 04:23 116 113/59 (77) Assessment Heart Rate Tracing: Category I (both twins; reduced to intermittent monitoring since she/twins have been stable) Tocometer Frequency: irregular Assessment and Plan Age: 34 : 1 Term: 0 Pre-term: 1 Livin Weeks & Days 33+5 weeks. Status: Reassuring Group B Streptococcus: Unknown Anticipate: Section Additional Comments Continue current management. Steroids completed on 01/25 Scheduled for RLTCS on 01/28. CAMILLA AGUERO DO Jan 27, 2020 06:29
[2020-01-27] MEDS: ALBUTEROL 90 MCG/ACT 8GM HFA INHALER INH PRN (09:12)
[2020-01-27] MEDS ORDERED: DOCUSATE SODIUM 100 MG CAP PO PRN (09:45)
[2020-01-27] MEDS: SLF 3 ML SYR IV PRN (10:21)
[2020-01-27] MEDS: SLF 3 ML SYR IV SCH ×2 (15:47→21:51)
[2020-01-28 00:27] VITALS: BP 113/69
[2020-01-28] MEDS: LR 1,000 ML IV SCH (02:28)
[2020-01-28] MEDS: AMPICILLIN SOD 2 GM in D5W MINI-BAG PLUS 100 ML IV SCH (04:22)
[2020-01-28 04:24] VITALS: BP 113/65
[2020-01-28] MEDS: NIFEdipine 10 MG CAP PO SCH (04:24)
[2020-01-28] MEDS ORDERED: ACETAMINOPHEN 500 MG TAB PO PRN (05:15)
[2020-01-28] MEDS: LEVOTHYROXINE 137MCG TABLET (0.137MG) PO SCH (05:30)
[2020-01-28] MEDS: SLF 3 ML SYR IV SCH ×3 (05:31→21:57)
[2020-01-28] MEDS: ALBUTEROL 90 MCG/ACT 8GM HFA INHALER INH PRN (11:00)
[2020-01-28] MEDS: AMOXICILLIN 500 MG CAP PO SCH ×2 (14:30→21:56)
[2020-01-28 20:31] VITALS: BP 119/66
[2020-01-28] MEDS: SLF 3 ML SYR IV PRN (21:57)
[2020-01-28 22:05] LABS: HEMATOCRIT 25.9 % (36.0-47.0); HEMOGLOBIN 8.2 g/dl (12.0-15.5); MEAN CORPUSCULAR HEMOGLOBIN 28.8 pg (27.0-33.0); MEAN CORPUSCULAR HGB CONC 31.7 g/dl (32.0-36.5); MEAN CORPUSCULAR VOLUME 90.9 fl (80.0-96.0); PLATELET COUNT, AUTOMATED 180 10^3/uL (150-450); RED BLOOD COUNT 2.85 10^6/uL (4.00-5.40); WHITE BLOOD COUNT 8.5 10^3/uL (4.0-10.0)
[2020-01-29] VITALS (9 sets, daily range): BP systolic 109–144; BP diastolic 67–90
[2020-01-29] MEDS ORDERED: LR 500 ML IV ONE (03:30)
[2020-01-29] MEDS ORDERED: BICITRA 30ML SOLN UDC As Ordered ONE (04:32)
[2020-01-29] MEDS ORDERED: ceFAZolin 2 GM/D5W 50 ML IV BAG (J0690 PER 500MG) As Ordered ONE (04:55)
[2020-01-29] MEDS ORDERED: AZITHROMYCIN INJ 500MG VIAL (J0456 PER 500MG) As Ordered ONE (04:56)
[2020-01-29] MEDS ORDERED: MORPHINE PRES-FREE INJ 10 MG/10 ML VIAL (J2274) As Ordered ONE (04:56)
[2020-01-29] MEDS ORDERED: OXYTOCIN 30 UNITS IN 0.9% NaCl 500ML IV BAG (J2590) As Ordered ONE ×2 (04:57→07:15)
[2020-01-29] MEDS ORDERED: KETOROLAC 60MG 2ML VIAL As Ordered ONE (04:57)
[2020-01-29] MEDS ORDERED: ONDANSETRON 4MG/2ML VIAL As Ordered ONE (04:57)
[2020-01-29] MEDS ORDERED: PHENYLephrine HCL 500 MCG/5 ML (100MCG/ML) SYRINGE (J2370) As Ordered ONE (04:57)
[2020-01-29] MEDS ORDERED: dexameTHASONE 4 MG/ML 1ML VIAL (J1100 PER 1MG) As Ordered ONE (04:57)
[2020-01-29] MEDS ORDERED: ePHEDrine SULFATE 25 MG/5 ML(5MG/ML) SYRINGE As Ordered ONE (04:57)
[2020-01-29] MEDS ORDERED: BICITRA 30ML SOLN UDC PO ONE (05:05)
[2020-01-29] MEDS ORDERED: ceFAZolin SOD 2 GM in IV 1 EA IV ONE (05:15)
[2020-01-29] MEDS ORDERED: ONDANSETRON 4MG/2ML VIAL IV PRN ×3 (05:15→07:00)
[2020-01-29] MEDS ORDERED: NALBUPHINE HCL 10 MG/ML AMP (J2300) IV PRN (05:15)
[2020-01-29] MEDS ORDERED: NALOXONE INJ 0.4MG/1ML VIAL (J2310 PER 1MG) IV PRN ×2 (05:15)
[2020-01-29] MEDS ORDERED: AZITHROMYCIN INJ 500 MG, VIAL MATE ADAPTER 1 EACH in D5W 250 ML IV ONE (05:15)
[2020-01-29] MEDS ORDERED: METOCLOPRAMIDE INJ 10MG/2ML VIAL (J2765 PER 1) IV PRN ×2 (05:15→07:00)
[2020-01-29] MEDS ORDERED: diphenhydrAMINE 50MG/ML VIAL (J1200) IV PRN (05:15)
--- NOTE | 2020-01-29 06:56 | ROOPDOC ---
[facility] Report Of Operation Report of Operation DATE OF PROCEDURE: 01/29/20 SURGEON: Frida Irene M.D. TRACTOR SWEEPER OPERATOR: Brenden Argueta M.D.( assistance needed for the urgent nature and complexity of the surgery) PROCEDURE: Repeat section PREOPERATIVE DIAGNOSIS: 1. Prolonged premature rupture of membranes 2. Dichorionic diamniotic twin gestation POSTOPERATIVE DIAGNOSIS: 1. Prolonged premature rupture of membranes 2. Dichorionic diamniotic twin gestation ANESTHESIA: Spinal ESTIMATED BLOOD LOSS: 850 mL URINE OUTPUT: 250 mL INTRAVENOUS FLUIDS: 1400 mL of lactated Ringer's solution PREOPERATIVE ANTIBIOTICS:. 2 g of Ancef and 500 mg azithromycin OPERATIVE FINDINGS: Liveborn female infant, Apgars 9 and 9. Weight 2890 g 6 lbs. 6 oz. cord gases 7.23 7.22 with base excess is -5.4 and -5.2 respectively. SPECIMENS: Placentas INDICATION FOR OPERATIVE: This patient is a 34-year-old 2 para 2 was initially admitted 5 days ago with premature rupture of membranes at 33 weeks. She was initially managed conservatively with antibiotics for prolonged latency and she received a course of steroids. On the morning of 34 weeks approximate 6 hours prior to her scheduled section, the patient began to have regular pattern of contractions and became more uncomfortable. Decision was made at that time to proceed with section DESCRIPTION OF PROCEDURE: After informed consent was obtained and written consent was reviewed. The patient was brought urgently to the operating room. She was then placed in the supine position with a left lateral tilt. Carballo catheter was previously placed and to gravity. Patient was then prepped and draped in the normal sterile fashion. A timeout operating room was performed identifying the patient, procedure be performed as well as drug allergies. Anesthesia was tested and deemed to be adequate. Pfannenstiel skin incision was made and this was carried down to the underlying rectus fascia. The fascia was then scored and this incision was extended bilaterally. The rectus muscles were then in the midline. The peritoneum is then entered. Mobius retractor was then placed. Vesicouterine peritoneum was then tented and excised and a bladder flap was created. Next, a curvilinear incision was then made in the lower uterine segment. The head was brought to the level of the incision atraumatically and delivered along the shoulders and corpus. The cord was clamped x2 and cut. Twin A was then brought over to the warmer with a good cry. Amniotomy was then performed with twin B. Twin B was then delivered footling breech. Lower extremities delivered followed by upper extremities and head. Cord was clamped 2 was cut infant was taken over to the warmer where Dr. Singh neonatologists awaited with a good cry. Placentas was drained and delivered grossly intact. The uterus was cleared of all clots and debris. The uterine incision was then closed using 0 Vicryl in a running locking fashion followed. The abdomen suctioned. Surgical sites reinspected and noted be hemostatic. The retractor was then removed. The anterior peritoneum was then reapproximated with 3-0 Vicryl. The rectus muscles were reapproximated 3-0 Vicryl. The fascia was then closed using 0 Vicryl in a running nonlocking fashion. The subcutaneous tissues was then irrigated and suctioned. Subcutaneous tissue was reapproximated using 3-0 Vicryl. Several subdermal stitch is placed using 3-0 Vicryl and the skin was closed with 4-0 Monocryl and subcuticular fashion. This incision was then cleaned and dried and was dressed. The patient was then taken to recovery in stable condition. All counts were correct. FRIDA IRENE MD. Jan 29, 2020 06:56
[2020-01-29] MEDS ORDERED: OXYTOCIN DRIP 30 UNITS in IV 1 EA IV SCH (06:57)
[2020-01-29] MEDS: LR 1,000 ML IV SCH ×2 (06:57→14:57)
[2020-01-29] MEDS ORDERED: LR 1,000 ML IV SCH (07:00)
[2020-01-29] MEDS ORDERED: MEASLES,MUMPS,RUBELLA VACCINE INJ (MMR-II) (90707) SC SCH (07:00)
[2020-01-29] MEDS ORDERED: RHOGAM 300 MCG (1500 IU) INJ (J2790) IM SCH (07:00)
[2020-01-29] MEDS ORDERED: fentaNYL 100 MCG/2 ML INJECTION (J3010) IV PRN (07:00)
[2020-01-29] MEDS ORDERED: MOM 30ML SUSPENSION UDC PO PRN (07:00)
[2020-01-29] MEDS: DOCUSATE SODIUM 100 MG CAP PO SCH ×2 (09:36→21:45)
[2020-01-29] MEDS: PRENATAL VITAMINS CHEWABLE TABLET PO SCH (09:36)
[2020-01-29] MEDS: PERCOCET 5MG/325MG TAB PO PRN ×2 (10:06→16:57)
[2020-01-29] MEDS: KETOROLAC 30 MG/ML 1ML VIAL IV SCH ×2 (12:35→17:58)
[2020-01-30] MEDS: KETOROLAC 30 MG/ML 1ML VIAL IV SCH (00:52)
[2020-01-30 02:00] VITALS: BP 132/79
[2020-01-30 05:28] VITALS: BP 134/88
[2020-01-30] MEDS: LEVOTHYROXINE 137MCG TABLET (0.137MG) PO SCH (06:00)
[2020-01-30] MEDS: PERCOCET 5MG/325MG TAB PO PRN ×3 (06:40→21:50)
[2020-01-30] MEDS: DOCUSATE SODIUM 100 MG CAP PO SCH ×2 (08:18→20:40)
[2020-01-30] MEDS: PRENATAL VITAMINS CHEWABLE TABLET PO SCH (08:18)
[2020-01-30] MEDS: IBUPROFEN 800 MG TAB PO SCH ×3 (08:18→23:57)
[2020-01-30 08:26] LABS: HEMATOCRIT 27.8 % (36.0-47.0); HEMOGLOBIN 9.1 g/dl (12.0-15.5); MEAN CORPUSCULAR HEMOGLOBIN 28.8 pg (27.0-33.0); MEAN CORPUSCULAR HGB CONC 32.7 g/dl (32.0-36.5); PLATELET COUNT, AUTOMATED 178 10^3/uL (150-450); RED BLOOD COUNT 3.16 10^6/uL (4.00-5.40); WHITE BLOOD COUNT 8.9 10^3/uL (4.0-10.0)
[2020-01-30 10:00] VITALS: BP 145/84
[2020-01-30 14:00] VITALS: BP 141/86
[2020-01-30] MEDS ORDERED: SLF 3 ML SYR IV PRN (16:00)
[2020-01-30 17:49] VITALS: BP 149/81
[2020-01-30] MEDS: SLF 3 ML SYR IV SCH (20:41)
[2020-01-30 22:00] VITALS: BP 140/74
[2020-01-31 02:00] VITALS: BP 147/92
[2020-01-31] MEDS: PERCOCET 5MG/325MG TAB PO PRN ×2 (05:01→13:17)
[2020-01-31] MEDS: LEVOTHYROXINE 137MCG TABLET (0.137MG) PO SCH (05:04)
[2020-01-31] MEDS: SLF 3 ML SYR IV SCH ×3 (05:05→22:00)
[2020-01-31 05:10] VITALS: BP 144/88
[2020-01-31 07:41] LABS: HEMATOCRIT 32.5 % (36.0-47.0); HEMOGLOBIN 10.4 g/dl (12.0-15.5); MEAN CORPUSCULAR HEMOGLOBIN 28.3 pg (27.0-33.0); MEAN CORPUSCULAR VOLUME 88.6 fl (80.0-96.0); PLATELET COUNT, AUTOMATED 227 10^3/uL (150-450); RED BLOOD COUNT 3.67 10^6/uL (4.00-5.40); WHITE BLOOD COUNT 9.2 10^3/uL (4.0-10.0)
[2020-01-31] MEDS: PRENATAL VITAMINS CHEWABLE TABLET PO SCH (07:46)
[2020-01-31] MEDS: IBUPROFEN 800 MG TAB PO SCH ×2 (07:47→15:45)
[2020-01-31] MEDS: DOCUSATE SODIUM 100 MG CAP PO SCH ×2 (07:47→21:06)
[2020-01-31 08:06] LABS: ALT/SGPT 23 U/L (12-78); BILIRUBIN,TOTAL 0.1 MG/DL (0.2-1.0); BLOOD UREA NITROGEN 15 MG/DL (7-18); CALCIUM LEVEL 8.2 MG/DL (8.5-10.1); CARBON DIOXIDE LEVEL 27 MEQ/L (21-32); CHLORIDE LEVEL 105 MEQ/L (98-107); CREATININE FOR GFR 0.53 MG/DL (0.55-1.30); GLOMERULAR FILTRATION RATE > 60.0 (>60); GLUCOSE, FASTING 70 MG/DL (70-100); LDH LACTATE DEHYDROGENASE 168 U/L (84-246); SODIUM LEVEL 138 MEQ/L (136-145); TOTAL PROTEIN 5.1 GM/DL (6.4-8.2); URIC ACID 5.7 MG/DL (2.6-6.0)
--- NOTE | 2020-01-31 09:52 | IPNPDOC ---
Progress Note Date of Service: Jan 31, 2020 Progress Note SUBJECT: Status post repeat low transverse section She has been ambulating, voiding spontaneously without issue and tolerating regular diet. Lochia decreasing/minimal. Patient is ambulating well. OBJECTIVE: VITAL SIGNS: Mild hypertension afebrile. Alert and oriented times three. Abdomen: Fundus firm at U-2. Soft, NTTP. Incision is clean, dry and intact ASSESSMENT: Status post uncomplicated repeat low transverse section. Vitals within normal limits, afebrile, hemodynamically stable with no evidence of infection. PLAN: Discharge to home tomorrow Tylenol and Motrin for pain. Routine instructions/precautions reviewed. Routine PP visit in 2 weeks and 6 weeks in clinic. VS, I&O, 24H, Fishbone Vital Signs/I&O Vital Signs Date Time Temp Pulse Resp B/P (MAP) Pulse Ox O2 Delivery O2 Flow Rate FiO2 01/31/20 05:36 18 Room Air 01/31/20 05:10 98.5 64 144/88 (106) 98 Laboratory Data 24H LABS Laboratory Tests 2 01/31/20 07:18: Nucleated Red Blood Cells % (auto) 0.0, Anion Gap 6L, Glomerular Filtration Rate > 60.0, Uric Acid 5.7, Calcium Level 8.2L, Total Bilirubin 0.1L, Aspartate Amino Transf (AST/SGOT) 17, Alanine Aminotransferase (ALT/SGPT) 23, Alkaline Phosphatase 88, Lactate Dehydrogenase 168, Total Protein 5.1L, Albumin 2.0L, Albumin/Globulin Ratio 0.6L CBC/BMP Laboratory Tests 01/31/20 07:18 Microbiology Microbiology 01/25/20 Group B Streptococcus Screen ([facility]) - Final, Complete CAMILLA AGUERO DO Jan 31, 2020 09:52
[2020-01-31 18:00] VITALS: BP 144/82
[2020-02-01] MEDS: PERCOCET 5MG/325MG TAB PO PRN (02:46)
[2020-02-01] MEDS: LEVOTHYROXINE 137MCG TABLET (0.137MG) PO SCH (05:57)
[2020-02-01 06:00] VITALS: BP 142/82
[2020-02-01] MEDS: SLF 3 ML SYR IV SCH (06:00)
--- NOTE | 2020-02-01 06:57 | DS.PDOC ---
Discharge Summary General Date of Admission Jan 25, 2020 at 20:28 Date of Discharge 02/01/20 Attending Physician: PRAKASH BRIONES MD. Discharge Summary PROCEDURES PERFORMED DURING STAY: [None]. ADMITTING DIAGNOSES: 1. [Pre ecalmpsia, Twin at 34 weeks, PROM]. DISCHARGE DIAGNOSES: 1. [Same, Post op Day 3]. COMPLICATIONS/CHIEF COMPLAINT: R/O Rupture, Twins. HISTORY OF PRESENT ILLNESS: [Lisa is a 34 yo G 2 P0404 now who underwent primary c/s on 01/29/20 due to PROM with Twin gestation and active labor. She delivered by primary c/s on 01/29/20. She delivered Twin A Female, 5lb 2 oz, 2322 grams, 9/9. Twin B 4lb 6 oz, 1998 gr, 9/9. Female. EBL: 850ml. She has been OOB for pericare, self care and NICU visits. She is tolerating a regular diet and PO fluids. She is voiding without difficulty and passing flatus. Her pain has been well managed. HOSPITAL COURSE: [Uncomplicated. ]. DISCHARGE MEDICATIONS: Please see below. ALLERGIES: Please see below. PHYSICAL EXAMINATION ON DISCHARGE: VITAL SIGNS: Please see below. Breasts: soft and non-tender. Abdomen FF at Umbilicus. Perineum: lochia rubra scant. Bilat extremities-+1 edema LABORATORY DATA: Please see below. ACTIVITY: [As tolerated]. DIET: [Regular] DISCHARGE PLAN: [D/C to home. F/U at [facility] for 2 week incision check and 8 week PP visit. Reviewed D/C instructions: breast care, incision care, sukumar care, pelvic rest, activity and lifting restrictions. Reviewed access to ccare and other danger signs] DISPOSITION: .Home DISCHARGE CONDITION: [Stable]. TIME SPENT ON DISCHARGE: Greater than [20] minutes. Vital Signs/I&Os Vital Signs Date Time Temp Pulse Resp B/P (MAP) Pulse Ox O2 Delivery O2 Flow Rate FiO2 02/01/20 06:00 98.7 80 16 142/82 (102) 98 Room Air I&O- Last 24 Hours up to 6 AM 02/01/20 06:00 Intake Total 840 ml Balance 840 ml Laboratory Data Labs 24H Laboratory Tests 2 01/31/20 07:18: Nucleated Red Blood Cells % (auto) 0.0, Anion Gap 6L, Glomerular Filtration Rate > 60.0, Uric Acid 5.7, Calcium Level 8.2L, Total Bilirubin 0.1L, Aspartate Amino Transf (AST/SGOT) 17, Alanine Aminotransferase (ALT/SGPT) 23, Alkaline Phosphatase 88, Lactate Dehydrogenase 168, Total Protein 5.1L, Albumin 2.0L, Albumin/Globulin Ratio 0.6L CBC/BMP Laboratory Tests 01/31/20 07:18 Microbiology Microbiology 01/25/20 Group B Streptococcus Screen ([facility]) - Final, Complete Discharge Medications Scheduled Levothyroxine Sodium (Levothyroxine Sodium) 137 Mcg Tablet, 137 MCG PO DAILY, (Reported) [] , 1 TAB PO DAILY, (Reported) Allergies Coded Allergies: No Known Allergies (Unverified , 07/15/19) AGUSTINA HERNANDEZ CNM Feb 01, 2020 06:57
[2020-02-01] MEDS: PRENATAL VITAMINS CHEWABLE TABLET PO SCH (10:18)
[2020-02-01] MEDS: IBUPROFEN 800 MG TAB PO SCH ×2 (10:19)
[2020-02-01] MEDS: DOCUSATE SODIUM 100 MG CAP PO SCH (10:19)
== END 2020-02-01 13:00 | disposition home or self-care (01) | DRG 773 ==
LOC: M LDO 19:09 → M LDI 20:28 → M OBS 01-29 08:20
PROVIDERS: ADMIT Obstetrics & Gynecology; ATTEND Obstetrics & Gynecology
PROC: 10D00Z1 Extraction of Products of Conception, Low, Open Approach (ICD-10-PCS; principal; 2020-01-29 05:30)
DX: O42.113 Preterm premature rupture of membranes, onset of labor more than 24 hours following rupture, third trimester (principal); Z3A.33 33 weeks gestation of pregnancy; O30.043 Twin pregnancy, dichorionic/diamniotic, third trimester; O99.284 Endocrine, nutritional and metabolic diseases complicating childbirth; E03.9 Hypothyroidism, unspecified; O34.211 Maternal care for low transverse scar from previous cesarean delivery; O32.8XX2 Maternal care for other malpresentation of fetus, fetus 2; Z37.2 Twins, both liveborn

== ENCOUNTER → 2020-03-10 | Outpatient (CLI) | payer OTHER ==
[~2020-03-10] MED LIST changes: +LEVO137T2 PO
[2020-03-10 14:25] LABS: FREE T4 1.13 NG/DL (0.76-1.46); THYROID STIMULATING HORMONE 2.28 uIU/ML (0.358-3.740)
== END ==
LOC: M PLALAB 09:57
PROVIDERS: ATTEND Nurse Practitioner Family
DX: E89.0 Postprocedural hypothyroidism (principal)
CPT/HCPCS: 36415; 84439; 84443; G0463

== ENCOUNTER → 2020-08-18 | Outpatient (REF) | payer OTHER ==
[2020-08-18 19:39] LABS: FREE T4 0.88 NG/DL (0.76-1.46); THYROID STIMULATING HORMONE 4.7 uIU/ML (0.358-3.740)
== END ==
LOC: M PLALAB 16:43
PROVIDERS: ATTEND Nurse Practitioner Family
DX: E89.0 Postprocedural hypothyroidism (principal)

== ENCOUNTER → 2020-11-17 | Outpatient (CLI) | payer OTHER ==
[2020-11-17 10:31] LABS: BASO % 0.4 % (0.0-1.0); EOS # 0.1 10^3/uL (0.0-0.5); EOS % 0.9 % (0.0-3.0); HEMATOCRIT 43.3 % (36.0-47.0); LYMPH # 1.6 10^3/uL (1.5-5.0); LYMPH % 22.8 % (24.0-44.0); MEAN CORPUSCULAR HEMOGLOBIN 29.5 pg (27.0-33.0); MEAN CORPUSCULAR HGB CONC 32.3 g/dl (32.0-36.5); MEAN CORPUSCULAR VOLUME 91.2 fl (80.0-96.0); MONO # 0.5 10^3/uL (0.0-0.8); MONO % 7.2 % (2.0-8.0); NEUTROPHILS # 4.7 10^3/uL (1.5-8.5); NEUTROPHILS % 68.6 % (36.0-66.0); PLATELET COUNT, AUTOMATED 329 10^3/uL (150-450); RED BLOOD COUNT 4.75 10^6/uL (4.00-5.40); WHITE BLOOD COUNT 6.8 10^3/uL (4.0-10.0)
[2020-11-17 11:21] LABS: ALBUMIN 3.9 GM/DL (3.2-5.2); ALT/SGPT 21 U/L (12-78); BILIRUBIN,TOTAL 0.5 MG/DL (0.2-1.0); BLOOD UREA NITROGEN 12 MG/DL (7-18); CALCIUM LEVEL 8.5 MG/DL (8.5-10.1); CARBON DIOXIDE LEVEL 30 MEQ/L (21-32); CHLORIDE LEVEL 105 MEQ/L (98-107); CHOLESTEROL LEVEL 198 MG/DL (<200); CHOLESTEROL RISK RATIO 2.955 (<5); CREATININE FOR GFR 0.56 MG/DL (0.55-1.30); GLOMERULAR FILTRATION RATE > 60.0 (>60); GLUCOSE, FASTING 88 MG/DL (70-100); HDL CHOLESTEROL 67 MG/DL (>40); LDL CHOLESTEROL 117 MG/DL (<100); NON-HDL-C 131 MG/DL; POTASSIUM SERUM 4.6 MEQ/L (3.5-5.1); SODIUM LEVEL 139 MEQ/L (136-145); TOTAL PROTEIN 7.3 GM/DL (6.4-8.2); TRIGLYCERIDES LEVEL 71 MG/DL (<150)
[2020-11-17 11:23] LABS: TOTAL 25(OH) VITAMIN D 27.6 NG/ML (30.0-100.0)
== END ==
LOC: M PLALAB 08:10
PROVIDERS: ATTEND Family Medicine
DX: Z13.0 Encounter for screening for diseases of the blood and blood-forming organs and certain disorders involving the immune mechanism (principal); Z13.220 Encounter for screening for lipoid disorders; Z13.29 Encounter for screening for other suspected endocrine disorder; E03.9 Hypothyroidism, unspecified

== ENCOUNTER → 2020-12-17 | Outpatient (CLI) | payer OTHER ==
[2020-12-17 17:35] LABS: FREE T4 1.08 NG/DL (0.76-1.46); THYROID STIMULATING HORMONE 1.77 uIU/ML (0.358-3.740)
== END ==
LOC: M LAB 14:12
PROVIDERS: ATTEND Nurse Practitioner Family
DX: E89.0 Postprocedural hypothyroidism (principal)

== ENCOUNTER 2021-03-09 12:28 | Emergency (ER) | payer OTHER ==
[~2021-03-09] VITALS: Ht 162.6 cm; Wt 95.5 kg
[2021-03-09 13:07] LABS: HEMATOCRIT 35.9 % (36.0-47.0); HEMOGLOBIN 11.9 g/dl (12.0-15.5); MEAN CORPUSCULAR HGB CONC 33.1 g/dl (32.0-36.5); MEAN CORPUSCULAR VOLUME 90.4 fl (80.0-96.0); PLATELET COUNT, AUTOMATED 355 10^3/uL (150-450); RED BLOOD COUNT 3.97 10^6/uL (4.00-5.40); WHITE BLOOD COUNT 14.7 10^3/uL (4.0-10.0)
[2021-03-09 13:33] LABS: HCG, SERUM QUALITATIVE NEGATIVE (NEGATIVE)
[2021-03-09 13:34] LABS: BLOOD UREA NITROGEN 7 MG/DL (7-18); CALCIUM LEVEL 8.4 MG/DL (8.5-10.1); CARBON DIOXIDE LEVEL 26 MEQ/L (21-32); CHLORIDE LEVEL 104 MEQ/L (98-107); CREATININE FOR GFR 0.47 MG/DL (0.55-1.30); GLOMERULAR FILTRATION RATE > 60.0 (>60); GLUCOSE, FASTING 104 MG/DL (70-100); POTASSIUM SERUM 3.7 MEQ/L (3.5-5.1); SODIUM LEVEL 139 MEQ/L (136-145)
[2021-03-09 13:44] LABS: RSV AMPLIFICATION NEGATIVE (NEGATIVE)
--- OUTSIDE RECORDS SUMMARY | 2021-03-09 13:58 | CCD | Continuity of Care Document ---
Author Author Lisa SMITH [employer] Organization Unknown Address [address] [address] Phone [phone] Care Team Providers Care Cell Room Supervisor Name Role Phone Kyle Solano AUTM [phone] Ines Weston AUTM [phone] Stacey Covington DO AUTM Problems Description No Information Available Social History Type Date Description Comments Sex Unknown Tobacco Use Start: Unknown Never Smoked Cigarettes Smoking Status Reviewed: 12/25/20 Never Smoked Cigarettes ETOH Use Occasionally consumes alcohol Allergies, Adverse Reactions, Alerts Description No Known Drug Allergies Medications Active Medications SIG Qnty Indications Ordering Provide r Date Vitamin D3 Ultra Strength 125mcg (5000 Ut) Capsules 1 by mouth daily Gena Smith NP 0 12/25/2020 Levothyroxine Sodium 125mcg Tablet s take 1 tablet by mouth every day. 90tabs Daphne Lehman P 08/25/2020 Tums Ultra 1000 1000mg Chewtabs one tab po bid Gena Smith NP 9 Albuterol Sulfate HFA 108(90Base) mcg/Act Aerosol 1-2 puffs every 4-6 hours as needed for shortness of breath 17un its Stacey Covington DO Calcitriol 0.25mcg Capsules one tab po qd. Unknown Sertraline HCL 50mg Tablets 1 by mouth every day E89.0 Unknown Tablets Unknown Immunizations Description No Information Available Vital Signs Date Vital Result Comment 12/25/2020 2:14pm BP Systolic 115 mmHg BP Diastolic 70 mmHg Heart Rate 79 /min Height 64.6 inches 5'4.60" Weight 215.19 lb BMI (Body Mass Index) 36.2 kg/m2 O2 % BldC Oximetry 97 % 08/25/2020 1:07pm BP Systolic 116 mmHg BP Diastolic 78 mmHg Heart Rate 94 /min Body Temperature 97.3 F Height 64.6 inches 5'4.60" Weight 217.38 lb BMI (Body Mass Index) 36.6 kg/m2 O2 % BldC Oximetry 98 % Results Test Acquired Date Facility Test Result H/L Range Note FT4&TSH Panel 12/17/2020 [facility] n[facility] [address] [place] [address] (315)- - Thyroid Stimulating Hormone 1.770 uIU/ML Normal 0.358- 3.740 Free T4 1.08 ng/dL Normal 0.76-1.46 Procedures Date Code Description Status 12/25/2020 19554 Office/Outpatient Established Lo w MDM 20-29 Min Completed 08/25/2020 15389 Office/Outpatient Established Mo d MDM 30-39 Min Completed Medical Devices Description No Information Available Encounters Type Date Location Provider Dx Diagnosis Office Visit 12/25/2020 2:15p Daphne Storm P E89.0 Postprocedural hypothyroidism Office Visit 08/25/2020 1:00p Daphne Storm P E89.0 Postprocedural hypothyroidism Assessments Date Code Description Provider 12/25/2020 E89.0 Postprocedural hypothyroidism Malka Smith NP 08/25/2020 E89.0 Postprocedural hypothyroidism Malka Smith NP Plan of Treatment 12/25/2020 - Gena Smith NP* E89.0 Postprocedural hypothyroidism* New Labs:* FT4&TSH Panel, Scheduled: 04/26/21 * Comments:* S/P Total thyroidectomy 2018 due to Grave's DiseaseLabs 11/12/2019- TSH = 0.59, free T4 = 1.04. Both TSI and thyrotropin receptor antibody testing was negative. Was on Synthroid 137mcg po qd. Labs done 12/22/2019- TSH= 0.26, FT4= 1.08 Labs done 01/14/2020- TSH= 0.726, FT4= 1.00Delivered 2 healthy girls. 01/29/2020Currently on Synthroid 112mcg po qdLabs done 03/10/2020- TSH= 2.28, FT4= 1.13- stableLabs done 08/18/20- TSH= 4.700, FT4= 0.88Dose increased to Synthroid 125 mcg po qd. Labs done 12/17/20- TSH= 1.770, FT4= 1.08- stableWill recheck in 4 months. * Follow up:* RTO 4 months. JL * All * New Medication:* Vitamin D3 Ultra Strength 125 mcg (5000 Ut) - 1 by mouth daily Functional Status Description No Information Available Mental Status Description No Information Available Referrals Description No Information Available
--- OUTSIDE RECORDS SUMMARY | 2021-03-09 13:58 | CCD | Continuity of Care Document ---
Author Author Lisa SMITH [employer] Organization Unknown Address [address] [address] Phone [phone] Care Team Providers Care Photography Instructor Name Role Phone Kyle Solano AUTM [phone] Ines Weston AUTM [phone] Stacey Covington DO AUTM [phone] Problems Description No Information Available Social History [...] Result H/L Range Note FT4&TSH Panel 12/17/2020 [facility] n[facility] [address] [place] [address] (315)- - Thyroid Stimulating Hormone 1.770 uIU/ML Normal 0.358- 3.740 Free T4 1.08 ng/dL Normal 0.76-1.46 Procedures Date Code Description Status 12/25/2020 91571 Office/Outpatient Established Lo w MDM 20-29 Min Completed 08/25/2020 93277 Office/Outpatient Established Mo d MDM 30-39 Min Completed Medical Devices Description No Information Available Encounters Type Date Location Provider Dx Diagnosis Office Visit 12/25/2020 2:15p Daphne Storm P E89.0 Postprocedural hypothyroidism Office Visit 08/25/2020 1:00p Daphne Storm P E89.0 Postprocedural hypothyroidism Assessments Date Code Description Provider 12/25/2020 E89.0 Postprocedural hypothyroidism Malka Smith NP 08/25/2020 E89.0 Postprocedural hypothyroidism Malka Smith NP Plan of Treatment Future Appointment(s):* 04/26/2021 2:15 pm - Gena Smith NP at DR. Sonya Felix 12/25/2020 - Gena Smith NP* E89.0 Postprocedural [...]
--- OUTSIDE RECORDS SUMMARY | 2021-03-09 13:58 | CCD ---
Author Author [facility] Organization [facility] Address Unknown Phone Unavailable Care Team Providers Care Traffic Assistant Name Role Phone Mady BILLINGS. CELERY PACKER BELKIS Unavailable [phone] MANUELITO, A. CELERY PACKER BELKIS Unavailable [phone] MANUELITO, A. CELERY PACKER BELKIS Unavailable [phone] MANUELITO, A. CELERY PACKER BELKIS Unavailable [phone] MANUELITO, A. CELERY PACKER BELKIS Unavailable [phone] MANUELITO, A. CELERY PACKER BELKIS Unavailable [phone] MANUELITO, A. CELERY PACKER BELKIS Unavailable [phone] MANUELITO, A. CELERY PACKER BELKIS Unavailable [phone] MANUELITO, A. CELERY PACKER BELKIS Unavailable [phone] MANUELITO, A. CELERY PACKER BELKIS Unavailable [phone] MANUELITO, A. CELERY PACKER BELKIS Unavailable [phone] MANUELITO, A. CELERY PACKER BELKIS Unavailable [phone] MANUELITO, A. CELERY PACKER BELKIS Unavailable [phone] MANUELITO, A. CELERY PACKER BELKIS Unavailable [phone] MANUELITO, A. CELERY PACKER BELKIS Unavailable [phone] MANUELITO, A. CELERY PACKER BELKIS Unavailable [phone] [facility], [facility] Unavailable Unavailable [facility] Unavailable Unavailable [facility] Unavailable Unavailable [facility] Unavailable Unavailable [facility] Unavailable Unavailable [facility] Unavailable Unavailable [facility] Unavailable Unavailable [facility] Unavailable Unavailable [facility] Unavailable Unavailable [facility] Unavailable Unavailable [facility] Unavailable Unavailable [facility] Unavailable Unavailable [facility] Unavailable Unavailable [facility] Unavailable Unavailable [facility] Unavailable Unavailable [facility] Unavailable Unavailable [facility] Unavailable Unavailable [facility] Unavailable Unavailable [facility] Unavailable Unavailable [facility] Unavailable Unavailable [facility] Unavailable Unavailable [facility] Unavailable Unavailable [facility] Unavailable Unavailable [facility] Unavailable Unavailable [facility] Unavailable Unavailable [facility] Unavailable Unavailable [facility] Unavailable Unavailable [facility] Unavailable Unavailable [facility] Unavailable Unavailable [facility] Unavailable Unavailable [facility] Unavailable Unavailable [facility] Unavailable Unavailable [facility] Unavailable Unavailable [facility] Unavailable Unavailable [facility] Unavailable Unavailable [facility] Unavailable Unavailable [facility] Unavailable Unavailable [facility] Unavailable Unavailable [facility] Unavailable Unavailable [facility] Unavailable Unavailable [facility] Unavailable Unavailable [facility] Unavailable Unavailable [facility] Unavailable Unavailable [facility] Unavailable Unavailable [facility] Unavailable Unavailable [facility] Unavailable Unavailable [facility] Unavailable Unavailable [facility] Unavailable Unavailable [facility] Unavailable Unavailable [facility] Unavailable Unavailable [facility] Unavailable Unavailable [facility] Unavailable Unavailable [facility] Unavailable Unavailable [facility] Unavailable Unavailable [facility] Unavailable Unavailable [facility] Unavailable Unavailable [facility] Unavailable Unavailable [facility] Unavailable Unavailable [facility] Unavailable Unavailable [facility] Unavailable Unavailable [facility] Unavailable Unavailable [facility] Unavailable Unavailable ELIANA-GELA, KIRILL DO Unavailable Unavailable ELIANA-GELA, KIRILL DO Unavailable Unavailable ELIANA-GELA, KIRILL DO Unavailable Unavailable ELIANA-GELA, KIRILL DO Unavailable Unavailable ELIANA-GELA, KIRILL DO Unavailable Unavailable ELIANA-GELA, KIRILL DO Unavailable Unavailable ELIANA-GELA, KIRILL DO Unavailable Unavailable ELIANA-GELA, KIRILL DO Unavailable Unavailable ELIANA-GELA, KIRILL DO Unavailable Unavailable ELIANA-GELA, KIRILL DO Unavailable Unavailable ELIANA-GELA, KIRILL DO Unavailable Unavailable ELIANA-GELA, KIRILL DO Unavailable Unavailable ELIANA-GELA, KIRILL DO Unavailable Unavailable ELIANA-GELA, KIRILL DO Unavailable Unavailable ELIANA-GELA, KIRILL DO Unavailable Unavailable ELIANA-GELA, KIRILL DO Unavailable Unavailable ELIANA-GELA, KIRILL DO Unavailable Unavailable ELIANA-GELA, KIRILL DO Unavailable Unavailable ELIANA-GELA, KIRILL DO Unavailable Unavailable ELIANA-GELA, KIRILL DO Unavailable Unavailable ELIANA-GELA, KIRILL DO Unavailable Unavailable ELIANA-GELA, KIRILL DO Unavailable Unavailable ELIANA-GELA, KIRILL DO Unavailable Unavailable ELIANA-GELA, KIRILL DO Unavailable Unavailable ELIANA-GELA, KIRILL DO Unavailable Unavailable ELIANA-GELA, KIRILL DO Unavailable Unavailable ELIANA-GELA, KIRILL DO Unavailable Unavailable ELIANA-GELA, KIRILL DO Unavailable Unavailable ELIANA-GELA, KIRILL DO Unavailable Unavailable ELIANA-GELA, KIRILL DO Unavailable Unavailable ELIANA-GELA, KIRILL DO Unavailable Unavailable ELIANA-GELA, KIRILL DO Unavailable Unavailable ELIANA-GELA, KIRILL DO Unavailable Unavailable ELIANA-GELA, KIRILL DO Unavailable Unavailable ELIANA-GELA, KIRILL DO Unavailable Unavailable ELIANA-GELA, KIRILL DO Unavailable Unavailable ELIANA-GELA, KIRILL DO Unavailable Unavailable ELIANA-GELA, KIRILL DO Unavailable Unavailable ELIANA-GELA, KIRILL DO Unavailable Unavailable ELIANA-GELA, KIRILL DO Unavailable Unavailable ELIANA-GELA, KIRILL DO Unavailable Unavailable ELIANA-GELA, KIRILL DO Unavailable Unavailable ELIANA-GELA, KIRILL DO Unavailable Unavailable ELIANA-GELA, KIRILL DO Unavailable Unavailable ELIANA-GELA, KIRILL DO Unavailable Unavailable ELIANA-GELA, KIRILL DO Unavailable Unavailable ELIANA-GELA, KIRILL DO Unavailable Unavailable ELIANA-GELA, KIRILL DO Unavailable Unavailable ELIANA-GELA, KIRILL DO Unavailable Unavailable ELIANA-GELA, KIRILL DO Unavailable Unavailable ELIANA-GELA, KIRILL DO Unavailable Unavailable ELIANA-GELA, KIRILL DO Unavailable Unavailable ELIANA-GELA, KIRILL DO Unavailable Unavailable ELIANA-GELA, KIRILL DO Unavailable Unavailable ELIANA-GELA, KIRILL DO Unavailable Unavailable ELIANA-GELA, KIRILL DO Unavailable Unavailable ELIANA-GELA, KIRILL DO Unavailable Unavailable ELIANA-GELA, KIRILL DO Unavailable Unavailable ELIANA-GELA, KIRILL DO Unavailable Unavailable ELIANA-GELA, KIRILL DO Unavailable Unavailable ELIANA-GELA, KIRILL DO Unavailable Unavailable ELIANA-GELA, KIRILL DO Unavailable Unavailable ELIANA-GELA, KIRILL DO Unavailable Unavailable ELIANA-GELA, KIRILL DO Unavailable Unavailable ELIANA-GELA, KIRILL DO Unavailable Unavailable ELIANA-GELA, KIRILL DO Unavailable Unavailable ELIANA-GELA, KIRILL DO Unavailable Unavailable ELIANA-GELA, KIRILL DO Unavailable Unavailable ELIANA-GELA, KIRILL DO Unavailable Unavailable ELIANA-GELA, KIRILL DO Unavailable Unavailable ELIANA-GELA, KIRILL DO Unavailable Unavailable ELIANA-GELA, KIRILL DO Unavailable Unavailable ELIANA-GELA, KIRILL DO Unavailable Unavailable ELIANA-GELA, KIRILL DO Unavailable Unavailable ELIANA-GELA, KIRILL DO Unavailable Unavailable ELIANA-GELA, KIRILL DO Unavailable Unavailable ELIANA-GELA, KIRILL DO Unavailable Unavailable ELIANA-GELA, KIRILL DO Unavailable Unavailable ELIANA-GELA, KIRILL DO Unavailable Unavailable ELIANA-GELA, KIRILL DO Unavailable Unavailable ELIANA-GELA, KIRILL DO Unavailable Unavailable ELIANA-GELA, KIRILL DO Unavailable Unavailable ELIANA-GELA, KIRILL DO Unavailable Unavailable ELIANA-GELA, KIRILL DO Unavailable Unavailable Brittany Palmer Unavailable [phone] Spencer Brittany Kelsi MELISA Unavailable [phone] Re-disclosure Warning The records that you are about to access may contain information from federally-assisted alcohol or drug abuse programs. If such information is present, then the following federally mandated warning applies: This information has been disclosed to you from records protected by federal confidentiality rules (42 CFR part 2). The federal rules prohibit you from making any further disclosure of this information unless further disclosure is expressly permitted by the written consent of the person to whom it pertains or as otherwise permitted by 42 CFR part 2. A general authorization for the release of medical or other information is NOT sufficient for this purpose. The Federal rules restrict any use of the information to criminally investigate or prosecute any alcohol or drug abuse patient.The records that you are about to access may contain highly sensitive health information, the redisclosure of which is protected by Article 27-F of the [place] [facility] Public Health law. If you continue you may have access to information: Regarding HIV / AIDS; Provided by facilities licensed or operated by the [facility] Office of Mental Health; or Provided by the [facility] Office for People With Developmental Disabilities. If such information is present, then the following [facility] mandated warning applies: This information has been disclosed to you from confidential records which are protected by state law. State law prohibits you from making any further disclosure of this information without the specific written consent of the person to whom it pertains, or as otherwise permitted by law. Any unauthorized further disclosure in violation of state law may result in a fine or intermediate sentence or both. A general authorization for the release of medical or other information is NOT sufficient authorization for further disc losure. Encounters Encounter Providers Location Date Indications Data Source(s ) Outpatient Attender: BELKISCLEMENCIA KENDALLMANUELITO 02/22 11:00:08 AM EST - 03/09/2021 11:49:38 AM EST [facility] ([facility] ) Outpatient Attender: Kelsi VINCENT 08:40:48 AM EST - 03/07/2021 09:02:24 AM EST [facility] ([facility]) OFFICE OUTPATIENT VISIT 15 MINUTES Attender: WILY SMITH NP Physical Therapy 12/25/2020 02:15:00 PM EDT [facility] ([facility]) Outpatient Attender: KIRILL HERNANDEZ [facility] 12/03/2020 04:40:00 PM EDT [facility] ([facility]) Outpatient Attender: KIRILL HERNANDEZ [facility] 11/25/2020 04:40:00 PM EDT [facility] ([facility]) Outpatient Attender: KIRILL HERNANDEZ [facility] 11/09/2020 03:00:00 PM EDT [facility] ([facility]) Unknown [address] [facility] [address] 09/16/2020 12:00:00 AM EDT eCW1 ([facility]) Outpatient Attender: WILY SMITH NP Physical Therapy 01:00:00 PM EDT [facility] ([facility]) (WC 15ESGYN) [facility] 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 [address] [place] [address] 02/17/2020 12:00:00 AM EDT eCW1 ([facility]) Outpatient Attender: WILY SMITH NP Physical Therapy 02:30:00 PM EDT [facility] ([facility]) (WC ESTOB) [facility] Est OB [address] [place] [address] 01/24/2020 12:00:00 AM EDT eCW1 ([facility]) Medications Medication Brand Name Start Date Product Form Dose Route Admi nistrative Instructions Pharmacy Instructions Status Indications Reaction Description Data Source(s) Cholecalciferol 5000 UNT Oral Capsule Vitamin D3 Ultra Stren gth 12/25/2020 12:00:00 AM EDT ORAL active M EDENT ([facility]) Cholecalciferol 2000 UNT Oral Capsule Vitamin D3 11/25/2020 12:00:00 AM EDT ORAL active [facility] ([facility]) Levothyroxine Sodium 0.125 MG Oral Tablet Levothyroxine Sodi um 08/25/2020 12:00:00 AM EDT ORAL active M [facility]ENT ([facility]) Fluoxetine 10 MG Oral Capsule [Prozac] PROzac 10 MG PROzac 1 0 MG 02/17/2020 12:00:00 AM EDT 1.0 {capsule} active P ROzac 10 MG eCW1 ([facility]) Fluoxetine 10 MG Oral Capsule [Prozac] PROzac 10 MG PROzac 1 0 MG 02/17/2020 12:00:00 AM EDT 1.0 {capsule} active P ROzac 10 MG eCW1 ([facility]) Fluoxetine 10 MG Oral Capsule [Prozac] PROzac 10 MG PROzac 1 0 MG 02/17/2020 12:00:00 AM EDT 1.0 {capsule} active P ROzac 10 MG eCW1 ([facility]) Insurance Providers Payer name Policy type / Coverage type Policy ID Covered alliance party ID Covered alliance party's relationship to mcgarry Policy Mcgarry Plan Information / [id number] Spouse 01 [id number] [facility] [id number] [facility] [id number] [facility] [place] [id number] S [id number] [facility] [id number] SELF PAY O UNAVAILABLE S UNAVAILA [facility] [id number] Problems, Conditions, and Diagnoses Code Display Name Description Problem Type Effective Dates Data Source(s) 49139688 Migraine without aura Migraine without aura Problem 11/09/2020 12:00:00 AM EDT [facility] ([facility]) [id number] Exercise-induced asthma Exercise-induced asthma Proble m 11/09/2020 12:00:00 AM EDT [facility] ([facility]) Surgeries/Procedures Procedure Description Date Indications Data Source(s) OFFICE OUTPATIENT VISIT 15 MINUTES 12/25/2020 12:00:00 AM EDT [facility] ([facility]) PERIODIC PREVENTIVE MED EST PATIENT 18-39 YRS 12/04/19 12:00:00 AM EDT [facility] ([facility]) PERIODIC PREVENTIVE MED EST PATIENT 18-39 YRS 11/26/19 12:00:00 AM EDT [facility] ([facility]) SPMTRY W/VC EXPIRATORY DO +-MXML VOL VNTJ 11/09/2020 12:00:00 AM EDT [facility] ([facility]) OFFICE OUTPATIENT VISIT 25 MINUTES 11/09/2020 12:00:00 AM EDT [facility] ([facility]) OFFICE OUTPATIENT VISIT 25 MINUTES 08/25/2020 12:00:00 AM EDT [facility] ([facility]) Results ID Date Data Source [id number] 12/17/2020 02:36:00 PM EDT [facility] ([facility]) Name Value Range Interpretation Code Description Data Yecenia rce(s) Supporting Document(s) Thyroid Stimulating Hormone 1.770 uIU/ML 0.358-3.740 [facility] ([facility]) Free T4 1.08 ng/dL 0.76-1.46 [facility] ([facility]) ID Date Data Source [id number] 12/17/2020 02:36:00 PM EDT [facility] ([facility]) Name Value Range Interpretation Code Description Data Yecenia rce(s) Supporting Document(s) Thyroid Stimulating Hormone 1.770 uIU/ML 0.358-3.740 Norm al (applies to non- numeric results) [facility] ([facility]) Free T4 1.08 ng/dL 0.76-1.46 Normal (applies to non-numeric resul ts) [facility] ([facility]) ID Date Data Source [id number] 12/03/2020 04:39:00 PM EDT [facility] ([facility]) Name Value Range Interpretation Code Description Data Yecenia rce(s) Supporting Document(s) Laboratory test finding (navigational concept) Laboratory test result [facility] ([facility]) ID Date Data Source [id number] 12/03/2020 04:39:00 PM EDT [facility] ([facility]) Name Value Range Interpretation Code Description Data Yecenia rce(s) Supporting Document(s) Clinical information Laboratory test result Norm al (applies to non-numeric results) [facility] ([facility]) None given Service comment Laboratory test result Normal (a pplies to non-numeric results) [facility] ([facility]) Last menstrual period start date Laboratory test result Normal (applies to non-numeric results) [facility] None given Date of previous PAP smear Laboratory test result Normal (applies to non- numeric results) [facility] ([facility]) None given Specimen source [Identifier] in Cervical or vaginal smear or scraping by Cyto stain Laboratory test result Normal (applies to non-numeric results) [facility] ([facility]) Cervix, Endocervix Date of previous biopsy Laboratory test result N ormal (applies to non-numeric results) [facility] ([facility]) None given Statement of adequacy [Interpretation] o f Cervical or vaginal smear or scraping by Cyto stain Laboratory test result Normal (applies to non-nu meric results) [facility]) Satisfactory for evaluation. Endocervical/transformation zone component absent. General categories [Interpretation] of C ervical or vaginal smear or scraping by Cyto stain Laboratory test result Normal (applies to non-numeric results) [facility] ([facility]) Microscopic observation [Identifier] in Cervix by Cyto stain Laboratory test result Normal (applies to non-numeric results) [facility] ([facility]) Negative for intraepithelial lesion or m alignancy. Cytology study comment Cervical or vaginal smear or sc raping Cyto stain Laboratory test result Normal (applies to non-numeric results) [facility]) This Pap test has been evaluated with iFLYER assisted technology. Microorganism identified in Cervical or vaginal smear or scraping by Cyto stain Laboratory test result Normal (applies to non-numeric results) [facility] ([facility]) Building Equipment Inspector who read Cyto stain of Cervical or vaginal smear or scraping Laboratory test result Normal (applies to non-numeric results) [facility] ([facility]) PCJ, SCT(ASCP) CT screening location: [facility], [address] [place] [address] . Building Equipment Inspector who read Cyto stain of Cervical or vaginal smear or scraping Laboratory test result Normal (applies to non-numeric results) [facility] ([facility]) Comment Laboratory test result [facility] ([facility]) EXPLANATORY NOTE: The Pap is a screening test for cervical cancer. It is not a diagnostic test and is subject to false negative and false positive results. It is most reliable when a satisfactory sample, regularly obtained, is submitted with relevant clinical findings and history, and when the Pap result is evaluated along with historic and current clinical information. Pathologist who read Cyto stain of Cervical or vaginal smear or scraping Laboratory test result Normal (applies to non-numeric results) [facility] ([facility]) Human papilloma virus E6+E7 mRNA [Presen ce] in Cervix by Probe and target amplification method Laboratory test result Normal (applies to non-numeric results) [facility] ([facility]) Methodology: Restaurant Hospitality Manager-Mediated Ampl ification This assay detects E6/E7 viral messenger RNA (mRNA) from 14 high-risk HPV types (16,18,31,33,35,39,45,51,52,56,58,59,66,68). The analytical performance characteristics of this assay have been determined by [employer]. The modifications have not been cleared or approved by the FDA. This assay has been validated pursuant to the CLIA regulations and is used for clinical purposes. For additional information, please refer to http://education.[employer]/faq/OZN040i7 (This link if provided for information/ educational purposes only.) ID Date Data Source [id number] 12/03/2020 04:39:00 PM EDT [facility] ([facility]) Name Value Range Interpretation Code Description Data Yecenia rce(s) Supporting Document(s) Laboratory test finding (navigational concept) Laboratory test result [facility] ([facility]) This order for age-based cervical cancer and STI screening follows ACOG guidelines(PB 168, 140, CZK821). See individual assays for performing site location. ID Date Data Source [id number] 11/17/2020 08:24:00 AM EDT [facility] ([facility]) Name Value Range Interpretation Code Description Data Yecenia rce(s) Supporting Document(s) Thyrotropin [Units/volume] in Serum or Plasma 2.370 uIU/ML 0. 358-3.740 Normal (applies to non-numeric results) [facility] ([facility]) <content>note:<nlbl:demographic_changed> </content>
<content></content> Thyroxine (T4) free [Mass/volume] in Serum or Plasma 1.10 ng/dL 0.76-1.46 Normal (applies to non-numeric results) [facility]) <content>note:<nlbl:demographic_changed> </content>
<content></content> ID Date Data Source [id number] 11/17/2020 08:24:00 AM EDT [facility] ([facility]) Name Value Range Interpretation Code Description Data Yecenia rce(s) Supporting Document(s) Cholesterol Level 198 mg/dL Normal (applies to non-numeri c results) [facility] ([facility]) Triglycerides Level 71 mg/dL Normal (applies to non-nume mariya results) [facility] ([facility]) HDL Cholesterol 67 mg/dL Normal (applies to non-numeric results) [facility]) LDL Cholesterol 117 mg/dL Above high normal [facility] ([facility]) Non-HDL-C 131 mg/dL Normal (applies to non-numeric resul ts) [facility] ([facility]) Cholesterol Risk Ratio 2.955 Normal (applies to non-n umeric results) [facility] ([facility]) ID Date Data Source [id number] 11/17/2020 08:24:00 AM EDT [facility] ([facility]) Name Value Range Interpretation Code Description Data Yecenia rce(s) Supporting Document(s) White Blood Count 6.8 10 4.0-10.0 Normal (applies to non-numeri c results) [facility] ([facility]) Hematocrit 43.3 % 36.0-47.0 Normal (applies to non-numeric resul ts) [facility] ([facility]) Red Blood Count 4.75 10 4.00-5.40 Normal (applies to non-numeric results) [facility] ([facility]) Hemoglobin 14.0 g/dL 12.0-15.5 Normal (applies to non-numeric resul ts) [facility] ([facility]) Mean Corpuscular Hemoglobin 29.5 pg 27.0-33.0 Norm al (applies to non-numeric results) [facility] ([facility]) Mean Corpuscular Volume 91.2 fl 80.0-96.0 Normal ( applies to non-numeric results) [facility]) Mean Corpuscular HGB Conc 32.3 g/dL 32.0-36.5 Normal (applies to non-numeric results) [facility]) Red Cell Distribution Width 13.7 % 11.5-14.5 Norm al (applies to non-numeric results) [facility] ([facility]) Platelet Count, Automated 329 10 150-450 Normal (applies to non-numeric results) [facility] ([facility]) Neutrophils % 68.6 % 36.0-66.0 Above high normal [facility] ([facility]) [place] % 7.2 % 2.0-8.0 Normal (applies to non-numeric resul ts) [facility] ([facility]) Lymph % 22.8 % 24.0-44.0 Below low normal [facility] ( [facility]) Baso % 0.4 % 0.0-1.0 Normal (applies to non-numeric resul ts) [facility] ([facility]) Eos % 0.9 % 0.0-3.0 Normal (applies to non-numeric resul ts) [facility] ([facility]) Immature Granulocyte % 0.1 % 0-3.0 Normal (applies to non-n umeric results) [facility] ([facility]) Neutrophils # 4.7 10 1.5-8.5 Normal (applies to non-numeric re sults) [facility] ([facility]) Nucleated Red Blood Cell % 0.0 % 0-0 Normal (applies to n on-numeric results) [facility] ([facility]) Lymph # 1.6 10 1.5-5.0 Normal (applies to non-numeric resul ts) [facility] ([facility]) [place] # 0.5 10 0.0-0.8 Normal (applies to non-numeric resul ts) [facility] ([facility]) Baso # 0.0 10 0.0-0.2 Normal (applies to non-numeric resul ts) [facility] ([facility]) Eos # 0.1 10 0.0-0.5 Normal (applies to non-numeric resul ts) [facility] ID Date Data Source [id number] 11/17/2020 08:24:00 AM EDT [facility] ([facility]) Name Value Range Interpretation Code Description Data Yecenia rce(s) Supporting Document(s) Glucose, Fasting 88 mg/dL 70-100 Normal (applies to non-numeric results) [facility]) Blood Urea Nitrogen 12 mg/dL 7-18 Normal (applies to non-nume mariya results) [facility] ([facility]) Creatinine For GFR 0.56 mg/dL 0.55-1.30 Normal (applies to non -numeric results) [facility] ([facility]) Glomerular Filtration Rate Laboratory test result Normal (applies to non- numeric results) [facility] ([facility]) <content>Units are mL/min/1.73 m2</content>
<content></content>
<content>Chronic Kidney Disease Staging per NKF:</content>
<content></content>
<content>Stage I & II GFR >=60 Normal to Mildly Decreased</content>
<content>Stage III GFR 30- 59 Moderately Decreased</content>
<content>Stage IV GFR 15-29 Severely Decreased</content>
<content>Stage V GFR <15 Very Little GFR Left</content>
<content>ESRD GFR <15 on COMB TENDER</content>
<content></content> Sodium Level 139 meq/L 136-145 Normal (applies to non-numeric res ults) [facility] ([facility]) Potassium Serum 4.6 meq/L 3.5-5.1 Normal (applies to non-numeric results) [facility] ([facility]) Chloride Level 105 meq/L 98-107 Normal (applies to non-numeric r esults) [facility] ([facility]) Carbon Dioxide Level 30 meq/L 21-32 Normal (applies to non-num drea results) [facility] Anion Gap 4 meq/L 8-16 Below low [facility] Calcium Level 8.5 mg/dL 8.5-10.1 Normal (applies to non-numeric re sults) [facility] ([facility]) Ast/Sgot 11 U/L 7-37 Normal (applies to non-numeric resul ts) [facility] ([facility]) Alt/SGPT 21 U/L 12-78 Normal (applies to non-numeric resul ts) [facility] ([facility]) Alkaline Phosphatase 102 U/L 45-117 Normal (applies to non-num drea results) [facility] ([facility]) Bilirubin,Total 0.5 mg/dL 0.2-1.0 Normal (applies to non-numeric results) [facility] ([facility]) Total Protein 7.3 GM/DL 6.4-8.2 Normal (applies to non-numeric re sults) [facility] ([facility]) Albumin/Globulin Ratio 1.1 1.2-2.2 Below low normal [facility] ([facility]) Albumin 3.9 GM/DL 3.2-5.2 Normal (applies to non-numeric resul ts) [facility]) ID Date Data Source [id number] 11/17/2020 08:24:00 AM EDT [facility]) Name Value Range Interpretation Code Description Data Yecenia rce(s) Supporting Document(s) Calcidiol [Mass/volume] in Serum or Plasma 27.6 ng/mL 30.0- 100.0 Below low normal [facility] ([facility]) <content>note:<nlbl:demographic_changed> </content>
<content></content> ID Date Data Source [id number] 11/09/2020 03:35:00 PM EDT [facility] ([facility]) Name Value Range Interpretation Code Description Data Yecenia rce(s) Supporting Document(s) Laboratory test finding (navigational concept) Laboratory test result [facility]) ID Date Data Source [id number] 03/10/2020 10:02:00 AM EST [facility] ([facility]) Name Value Range Interpretation Code Description Data Yecenia rce(s) Supporting Document(s) Thyrotropin [Units/volume] in Serum or Plasma by Detec tion limit <= 0.05 mIU/L 2.280 uIU/ML 0.358-3.740 [facility] ([facility]) <content>note:<nlbl:demographic_changed> </content>
<content></content> Thyroxine (T4) free [Mass/volume] in Serum or Plasma 1.13 ng/dL 0.76- 1.46 [facility] ([facility]) <content>note:<nlbl:demographic_changed> </content>
<content></content> ID Date Data Source TOTAL PROTEIN,RANDOM URINE 01/29/2020 02:24:05 AM EDT eCW1 ( [facility]) Name Value Range Interpretation Code Description Data Yecenia rce(s) Supporting Document(s) 20.1 TOTAL PROTEIN,RANDOM URINE eCW 1 ([facility]) ID Date Data Source CREATININE,RANDOM URINE 01/29/2020 02:24:05 AM EDT eCW1 ([facility]) Name Value Range Interpretation Code Description Data Yecenia rce(s) Supporting Document(s) 117.0 CREATININE,RANDOM URINE eCW1 ( [facility]) ID Date Data Source Comprehensive Metabolic Profile (CMP) 01/29/2020 02:24:05 AM EDT eCW1 ([facility]) Name Value Range Interpretation Code Description Data Yecenia rce(s) Supporting Document(s) 0.52 CREATININE FOR GFR eCW1 ([facility]) 10 BLOOD UREA NITROGEN eCW1 ([facility]) 95 GLUCOSE, FASTING eCW1 ([facility]) 4.3 POTASSIUM SERUM eCW1 ([facility]) 137 SODIUM LEVEL eCW1 ([facility]) > 60.0 GLOMERULAR FILTRATION RATE eCW 1 ([facility]) 104 CHLORIDE LEVEL eCW1 ([facility]) 23 CARBON DIOXIDE LEVEL eCW1 ([facility]) 13 AST/SGOT eCW1 ([facility]) 9.2 CALCIUM LEVEL eCW1 ([facility]) 12 ALT/SGPT eCW1 ([facility]) 0.2 BILIRUBIN,TOTAL eCW1 ([facility]) 115 ALKALINE PHOSPHATASE eCW1 ([facility]) 6.1 TOTAL PROTEIN eCW1 ([facility]) 2.5 ALBUMIN eCW1 ([facility]) 0.7 ALBUMIN/GLOBULIN RATIO eCW1 ([facility]) ID Date Data Source CBC - Complete Blood Count 01/29/2020 02:24:05 AM EDT eCW1 ( [facility]) Name Value Range Interpretation Code Description Data Yecenia rce(s) Supporting Document(s) 10.9 HEMOGLOBIN eCW1 ([facility]) 3.73 RED BLOOD COUNT eCW1 ([facility]) 9.0 WHITE BLOOD COUNT eCW1 ([facility]) 32.7 MEAN CORPUSCULAR HGB CONC eCW1 ([facility]) 89.3 MEAN CORPUSCULAR VOLUME eCW1 ( [facility]) 33.3 HEMATOCRIT eCW1 ([facility]) 29.2 MEAN CORPUSCULAR HEMOGLOBIN eC W1 ([facility]) 13.2 RED CELL DISTRIBUTION WIDTH eC W1 ([facility]) 236 PLATELET COUNT, AUTOMATED eCW1 ([facility]) ID Date Data Source [id number] 01/14/2020 09:59:00 AM EDT [facility] ([facility]) Name Value Range Interpretation Code Description Data Yecenia rce(s) Supporting Document(s) Thyroid Stimulating Hormone 0.726 uIU/ML 0.358-3.740 [facility] ([facility]) Free T4 1.00 ng/dL 0.76-1.46 [facility] ([facility]) Procedure Social History Code Duration Value Status Description Data Source(s ) Smoking 12/25/2020 12:00:00 AM EDT Never Smoked Cigarettes com pleted Never Smoked Cigarettes [facility] ([facility]) Smoking 12/03/2020 12:00:00 AM EDT Patient has never smoked co mpleted Patient has never smoked [facility] ([facility]) Smoking 03/10/2020 12:00:00 AM EST Never Smoker completed Never S moker eCW1 ([facility]) Smoking 03/10/2020 12:00:00 AM EST Never Smoker completed Never S moker eCW1 ([facility]) Smoking 02/17/2020 12:00:00 AM EDT Never Smoker completed Never S moker eCW1 ([facility]) Smoking 01/24/2020 12:00:00 AM EDT Never Smoker completed Never S moker eCW1 ([facility]) Smoking 01/24/2020 12:00:00 AM EDT Never Smoker completed Never S moker eCW1 ([facility]) Vital Signs ID Date Data Source UNK Name Value Range Interpretation Code Description Data Source(s) Systolic blood pressure 115 mm[Hg] 115 mm[Hg] M [facility] ([facility]) Diastolic blood pressure 70 mm[Hg] 70 mm[Hg] [facility] ([facility]) Heart rate 79 /min 79 /min [facility] ([facility]) Body height 64.6 [in_i] 64.6 [in_i] [facility] ([facility] 5'4.60" Body weight 215.19 [lb_av] 215.19 [lb_av] [facility] T ([facility]) Body mass index (BMI) [Ratio] 36.2 kg/m2 36.2 k g/m2 [facility] ([facility]) Oxygen saturation in Arterial blood by Pulse oximetry 97 % 97 % [facility] ([facility]) Body mass index (BMI) [Ratio] 36.5 kg/m2 36.5 k g/m2 [facility] ([facility]) Heart rate 76 /min 76 /min [facility] ([facility]) Respiratory rate 14 /min 14 /min [facility] ( [facility]) Body temperature 98.1 [degF] 98.1 [degF] [facility] ([facility]) Oxygen saturation in Arterial blood by Pulse oximetry 98 % 98 % [facility] ([facility]) [place] body weight 120 [lb_av] 120 [lb_av] [facility] T ([facility]) Body height 64.5 [in_i] 64.5 [in_i] [facility] ([facility]) 5'4.50" Body weight 216.00 [lb_av] 216.00 [lb_av] [facility] T ([facility]) Systolic blood pressure 120 mm[Hg] 120 mm[Hg] [facility] ([facility]) Diastolic blood pressure 70 mm[Hg] 70 mm[Hg] [facility] ([facility]) Body temperature 98.0 [degF] 98.0 [degF] [facility] ([facility]) Systolic blood pressure 120 mm[Hg] 120 mm[Hg] M [facility] ([facility]) [place] body weight 120 [lb_av] 120 [lb_av] [facility] ([facility]) Diastolic blood pressure 82 mm[Hg] 82 mm[Hg] [facility] ([facility]) Body weight 218.00 [lb_av] 218.00 [lb_av] [facility] T ([facility]) Oxygen saturation in Arterial blood by Pulse oximetry 98 % 98 % [facility] ([facility]) Body height 64.5 [in_i] 64.5 [in_i] [facility] ([facility]) 5'4.50" Body mass index (BMI) [Ratio] 36.8 kg/m2 36.8 k g/m2 [facility] ([facility]) Heart rate 96 /min 96 /min [facility] ([facility]) Respiratory rate 14 /min 14 /min [facility] ( [facility]) Systolic blood pressure 122 mm[Hg] 122 mm[Hg] M [facility] ([facility]) Diastolic blood pressure 72 mm[Hg] 72 mm[Hg] [facility] ([facility]) Body height 64.5 [in_i] 64.5 [in_i] [facility] ([facility]) 5'4.50" Body weight 219.25 [lb_av] 219.25 [lb_av] [facility] T ([facility]) Body mass index (BMI) [Ratio] 37.0 kg/m2 37.0 k g/m2 [facility] ([facility]) Heart rate 90 /min 90 /min [facility] ([facility]) Respiratory rate 18 /min 18 /min [facility] ( [facility]) Body temperature 98.4 [degF] 98.4 [degF] [facility] ([facility]) Oxygen saturation in Arterial blood by Pulse oximetry 99 % 99 % [facility] ([facility]) [place] body weight 120 [lb_av] 120 [lb_av] [facility] T ([facility]) Body temperature 97.3 [degF] 97.3 [degF] [facility] ([facility]) Oxygen saturation in Arterial blood by Pulse oximetry 98 % 98 % [facility] ([facility]) Systolic blood pressure 116 mm[Hg] 116 mm[Hg] M [facility] ([facility]) Diastolic blood pressure 78 mm[Hg] 78 mm[Hg] [facility] ([facility]) Heart rate 94 /min 94 /min [facility] ([facility]) Body height 64.6 [in_i] 64.6 [in_i] [facility] ([facility]) 5'4.60" Body weight 217.38 [lb_av] 217.38 [lb_av] [facility] T ([facility]) Body mass index (BMI) [Ratio] 36.6 kg/m2 36.6 k g/m2 [facility] ([facility]) Body weight 209 [lb_av] 209 [lb_av] eCW1 ([facility]) Body height 64 [in_i] 64 [in_i] eCW1 ([facility]) Body mass index (BMI) [Ratio] 35.87 kg/m2 35.87 kg/m2 eCW1 ([facility]) Systolic blood pressure 126 mm[Hg] 126 mm[Hg] e CW1 ([facility]) Diastolic blood pressure 82 mm[Hg] 82 mm[Hg] eCW1 ([facility]) Heart rate 76 /min 76 /min [facility] ([facility]) Body mass index (BMI) [Ratio] 38.9 kg/m2 38.9 k g/m2 [facility] ([facility]) Systolic blood pressure 122 mm[Hg] 122 mm[Hg] M [facility] ([facility]) Diastolic blood pressure 84 mm[Hg] 84 mm[Hg] [facility] ([facility]) Body temperature 97.1 [degF] 97.1 [degF] [facility] ([facility]) Body height 64.6 [in_i] 64.6 [in_i] [facility] ([facility]) 5'4.60" Body weight 231.00 [lb_av] 231.00 [lb_av] [facility] T ([facility]) Body weight 232 [lb_av] 232 [lb_av] eCW1 ([facility]) Body height 64 [in_i] 64 [in_i] eCW1 ([facility]) Body mass index (BMI) [Ratio] 39.823 kg/m2 39.8 23 kg/m2 eCW1 ([facility]) Systolic blood pressure 136 mm[Hg] 136 mm[Hg] e CW1 ([facility]) Diastolic blood pressure 80 mm[Hg] 80 mm[Hg] eCW1 ([facility]) Patient Treatment Plan of Care Planned Activity Planned Date Details Description Data Source (s) Fluoxetine 10 MG Oral Capsule [Prozac] 02/17/2020 12:00:00 AM EDT eCW1 ([facility])
--- OUTSIDE RECORDS SUMMARY | 2021-03-09 13:58 | CCD | Continuity of Care Document ---
Author Author Lisa COVINGTON D.O. Organization Unknown Address [address] [place] [address] Phone [phone] Care Team Providers Care Ip Paralegal Name Role Phone Stacey Covington D.O. AUTM [phone] Problems Active Problems Provider Date Hypothyroidism MELISA Bonilla Onset: 12/19/2018 Female infertility MELISA Bonilla Onset: 12/19/2018 Exercise-induced asthma Stacey Covington D.O. Onset: Migraine without aura Stacey Covington D.O. Onset: 10/22 Social History Type Date Description Comments Sex Unknown ETOH Use Drinks 2 Alcoholic Beverages Per Week Tobacco Use Start: Unknown Patient has never smoked Recreational Drug Use Denies Drug Use Smoking Status Reviewed: 12/03/20 Patient has never smoked Exercise Type/Frequency Yoga Exercise Type/Frequency Cardio HIIT Sun Exposure Does not use sunscreen Seat Belt/Car Seat Always uses seat belt Allergies, Adverse Reactions, Alerts Description No Known Drug Allergies Medications Active Medications SIG Qnty Indications Ordering Provide r Date Vitamin D3 50mcg (1999 Ut) Capsule s 1 by mouth every day 90caps Stacey Covington D.O. 11/25 Tablets 1 by colten th every day Unknown Albuterol Sulfate HFA 108(90Base) mcg/Act Aerosol Inhale 1 To 2 Puffs By Mouth Every 4 To 6 Hours as Needed For Shortness Of Breath 18units Lauryn JarrettORadha Levothyroxine Sodium 125mcg Capsul es 1 by mouth every day Unknown Immunizations Description No Information Available Vital Signs Date Vital Result Comment 12/03/2020 4:42pm BP Systolic 120 mmHg BP Diastolic 70 mmHg Height 64.5 inches 5'4.50" Weight 216.00 lb BMI (Body Mass Index) 36.5 kg/m2 Heart Rate 76 /min Respiratory Rate 14 /min Body Temperature 98.1 F O2 % BldC Oximetry 98 % [place] Body Weight 120 lb 11/25/2020 4:45pm BP Systolic 120 mmHg BP Diastolic 82 mmHg Height 64.5 inches 5'4.50" Weight 218.00 lb BMI (Body Mass Index) 36.8 kg/m2 Heart Rate 96 /min Respiratory Rate 14 /min Body Temperature 98.0 F O2 % BldC Oximetry 98 % [place] Body Weight 120 lb Results Test Acquired Date Facility Test Result H/L Range Note FT4&TSH Panel 12/17/2020 [facility] Outpatient Testi (Registration) [address] [place] [address] [phone] Thyroid Stimulating Hormone 1.770 uIU/ML Normal 0. 358-3.740 Free T4 1.08 ng/dL Normal 0.76-1.46 Laboratory test finding 12/03/2020 [facility] Image-Guided Pap W/Age Based SCR Protocols (SEE NOTE) 1 Thinprep Tis Pap And HPV Mrna E6/E7 Refl 12/03/2020 [facility] Report Status: DNR Normal Clinical Information: (SEE NOTE) Normal 2 LMP: (SEE NOTE) Normal 3 Prev. Pap: (SEE NOTE) Normal 4 Prev. BX: (SEE NOTE) Normal 5 Source: (SEE NOTE) Normal 6 Statement Of Adequacy: (SEE NOTE) Normal 7 General Categorization: DNR Normal Interpretation/Result: (SEE NOTE) Normal 8 Infection: DNR Normal Comment: (SEE NOTE) Normal 9 Cigar Wrapper Tender Automatic: (SEE NOTE) Normal 10 Review Cigar Wrapper Tender Automatic: DNR Normal Pathologist: DNR Normal Comment (SEE NOTE) 11 HPV mRNA E6/E7 Not Detected Normal Not Detected 12 Laboratory test finding 12/03/2020 [facility] Enhanced PDF Report [id number] SEE IMAGE Laboratory test finding 11/17/[address] [address] [phone] Total 25(Oh) Vitamin D 27.6 NG/ML Low 30.0-100. 0 13 Comprehensive Metabolic Profil 11/17/[address] [address] [phone] Glucose, Fasting 88 mg/dL Normal 70-100 Blood Urea Nitrogen 12 mg/dL Normal 7-18 Creatinine For GFR 0.56 mg/dL Normal 0.55-1.30 Glomerular Filtration Rate > 60.0 Normal >60 1 4 Sodium Level 139 mEq/L Normal 136-145 Potassium Serum 4.6 mEq/L Normal 3.5-5.1 Chloride Level 105 mEq/L Normal 98-107 Carbon Dioxide Level 30 mEq/L Normal 21-32 Anion Gap 4 mEq/L Low 8-16 Calcium Level 8.5 mg/dL Normal 8.5-10.1 Ast/Sgot 11 U/L Normal 7-37 Alt/SGPT 21 U/L Normal 12-78 Alkaline Phosphatase 102 U/L Normal 45-117 Bilirubin,Total 0.5 mg/dL Normal 0.2-1.0 Total Protein 7.3 GM/DL Normal 6.4-8.2 Albumin 3.9 GM/DL Normal 3.2-5.2 Albumin/Globulin Ratio 1.1 Low 1.2-2.2 CBC With Differential 11/17/[address] [address] [phone] White Blood Count 6.8 10 Normal 4.0-10.0 Red Blood Count 4.75 10 Normal 4.00-5.40 Hemoglobin 14.0 g/dL Normal 12.0-15.5 Hematocrit 43.3 % Normal 36.0-47.0 Mean Corpuscular Volume 91.2 fl Normal 80.0-96.0 Mean Corpuscular Hemoglobin 29.5 pg Normal 27.0-33.0 Mean Corpuscular HGB Conc 32.3 g/dL Normal 32.0-36.5 Red Cell Distribution Width 13.7 % Normal 11.5-14.5 Platelet Count, Automated 329 10 Normal 150-450 Neutrophils % 68.6 % High 36.0-66.0 Lymph % 22.8 % Low 24.0-44.0 Traverse % 7.2 % Normal 2.0-8.0 Eos % 0.9 % Normal 0.0-3.0 Baso % 0.4 % Normal 0.0-1.0 Immature Granulocyte % 0.1 % Normal 0-3.0 Nucleated Red Blood Cell % 0.0 % Normal 0-0 Neutrophils # 4.7 10 Normal 1.5-8.5 Lymph # 1.6 10 Normal 1.5-5.0 Traverse # 0.5 10 Normal 0.0-0.8 Eos # 0.1 10 Normal 0.0-0.5 Baso # 0.0 10 Normal 0.0-0.2 Lipid Panel 11/17/2020 [facility] [address] [place] [id number] [phone] Triglycerides Level 71 mg/dL Normal <150 Cholesterol Level 198 mg/dL Normal <200 HDL Cholesterol 67 mg/dL Normal >40 LDL Cholesterol 117 mg/dL High <100 Non-HDL-C 131 mg/dL Normal Cholesterol Risk Ratio 2.955 Normal <5 Laboratory test finding 11/17/2020 [facility] [address] [place] [address] [phone] Thyroid Stimulating Hormone 2.370 uIU/ML Normal 0. 358-3.740 15 Free T4 1.10 ng/dL Normal 0.76-1.46 16 Order 11/09/2020 In House Orders Spirometry Without Bronchodilator see report 1 This order for age-based cer vical cancer and STI screening follows ACOG guidelines(PB 168, 140, WVO490). See individual assays for performing site location. 2 None given 3 None given 4 None given 5 None given 6 Cervix, Endocervix 7 Satisfactory for evaluation. Endocervical/transformation zone component absent. 8 Negative for intraepithelial lesion or malignancy. 9 This Pap test has been evalu ated with computer assisted technology. 10 PCJ, SCT(ASCP) CT screening location: [facility] [place], [address] [place] [address], [place] [address] . 11 EXPLANATORY NOTE: The Pap is a screening test for cervical cancer. It is not a diagnostic test and is subject to false negative and false positive results. It is most reliable when a satisfactory sample, regularly obtained, is submitted with relevant clinical findings and history, and when the Pap result is evaluated along with historic and current clinical information. 12 Methodology: Sand Blaster-M ediated Amplification This assay detects E6/E7 viral messenger RNA (mRNA) from 14 high-risk HPV types (16,18,31,33,35,39,45,51,52,56,58,59,66,68). The analytical performance characteristics of this assay have been determined by [facility]. The modifications have not been cleared or approved by the FDA. This assay has been validated pursuant to the CLIA regulations and is used for clinical purposes. For additional information, please refer to http://education.Archevos/faq/HZS533n4 (This link if provided for information/ educational purposes only.) 13 note:<nlbl:demographic_chang ed> 14 Units are mL/min/1.73 m2 Chronic Kidney Disease Staging per NKF: Stage I & II GFR >=60 Normal to Mildly Decreased Stage III GFR 30-59 Moderately Decreased Stage IV GFR 15-29 Severely Decreased Stage V GFR <15 Very Little GFR Left ESRD GFR <15 on BUILDING SERVICES TECHNICIAN 15 note:<nlbl:demographic_chang ed> 16 note:<nlbl:demographic_chang ed> Procedures Date Code Description Status 12/03/2020 86377 Preventive Visit Est 18-39 Yrs C ompleted 11/25/2020 09024 Preventive Visit Est 18-39 Yrs C ompleted 11/09/2020 92225 Office/Outpatient Established Mo d MDM 30-39 Min Completed 11/09/2020 58680 Spirometry Completed Medical Devices Description No Information Available Encounters Type Date Location Provider Dx Diagnosis Office Visit 12/03/2020 4:40p [facility] James Covington D.O. 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 Z00.00 Encntr for general adult med ical exam w/o abnormal findings E03.9 Hypothyroidism, unspecified J45.990 Exercise induced bronchospas m Z79.899 Other [facility] (current) dr hector vidales E55.9 Vitamin D deficiency, unspec ified Office Visit 11/09/2020 3:00p [facility] James Covington D.O. 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 11/25/2020 J45.990 Exercise induced bronchospasm Christian Covington D.O. 11/25/2020 Z79.899 Other termite exterminator (current) drug t herapy Stacey Covington, D.O. 11/25/2020 E55.9 Vitamin D deficiency, unspecifie d Stacey Covington, D.O. 11/09/2020 E03.9 Hypothyroidism, unspecified Stacey Covington, D.O. 11/09/2020 N97.9 Female infertility, unspecified Stacey Covington, D.O. 11/09/2020 J45.990 Exercise induced bronchospasm Christian Covington, D.O. 11/09/2020 Z79.899 Other termite exterminator (current) drug t herapy Stacey Covington, D.O. 11/09/2020 Z13.29 Encounter for screen ing for other suspected endocrine disorder Merry Jarrett.ORadha 11/09/2020 Z13.0 Encounter for screen ing for diseases of the blood and blood- forming organs and certain disorders involving the immune mechanism Merry Jarrett.ORadha 11/09/2020 Z13.220 Encounter for screening for lipo id disorders Stacey Pressley D.O. Plan of Treatment No Information Available Functional Status Description No Information Available Mental Status Description No Information Available Referrals Description No Information Available
--- NOTE | 2021-03-09 14:12 | REP ---
INDICATION: sob, cough. COMPARISON: None. TECHNIQUE: PA and lateral FINDINGS: The cardiomediastinal silhouette is within normal limits. There are patchy bibasilar opacities right greater than left with bilateral CP angle blunting. Patchy right upper and lower lobe opacities are also identified. The osseous structures are within normal limits. IMPRESSION: There is evidence of bibasilar pneumonia and right upper lobe pneumonia with small bilateral pleural effusions. There are no priors for comparison. Follow-up is recommended. <Electronically signed by Juan C Ma > 03/09/21 [id number]
[2021-03-09] MEDS ORDERED: cefTRIAXone SOD 2 GM in D5W MINI-BAG PLUS 50 ML IV ONE (15:10)
[2021-03-09] MEDS ORDERED: AZITHROMYCIN 250MG TABLET PO ONE (15:10)
[2021-03-09] MEDS: COMBIVENT RESPIMAT 100-20MCG INHALER 4GM INH SCH ×3 (15:35→16:45)
--- NOTE | 2021-03-09 16:41 | REP ---
INDICATION: effusion COMPARISON: None TECHNIQUE: Axial noncontrast images from the thoracic inlet to the upper abdomen with coronal and sagittal reformations. This CT examination was performed using the following dose reduction techniques: Automated exposure control, adjustment of mA and/or kv according to the patient's size, and use of iterative reconstruction technique. FINDINGS: Moderate to large area of consolidation with air bronchograms primarily involving the right lower lobe and to a lesser extent the posterior right upper lobe. Mild left basilar atelectasis is also noted. No effusion. No pneumothorax. Tracheobronchial tree is patent. Reactive adenopathy suspected. Further evaluation of the mediastinum demonstrates relatively normal noncontrast evaluation of the thoracic aorta, pulmonary vasculature, and heart/pericardium. Limited upper abdomen demonstrates normal bilateral adrenal glands. Musculoskeletal structures are intact. IMPRESSION: Moderate/large right lower lobe pneumonia with subtle extension to the right upper lobe and mild left basilar atelectasis. Follow-up to resolution. <Electronically signed by Tom López > 03/09/21 [id number]
[2021-03-09] MEDS ORDERED: AZIT500T5 PO (17:18)
[2021-03-09] MEDS ORDERED: PRED20TA PO (17:18)
[2021-03-09] MEDS ORDERED: CEFD300C PO (17:18)
[2021-03-09 17:28] VITALS: BP 127/85
== END 2021-03-09 17:39 | disposition home or self-care (01) ==
LOC: M ED 12:28 → EDBD 12:28 → M ED 17:39
DX: J18.8 Other pneumonia, unspecified organism (principal); J45.909 Unspecified asthma, uncomplicated; E05.00 Thyrotoxicosis with diffuse goiter without thyrotoxic crisis or storm; Z79.899 Other long term (current) drug therapy; Z79.890 Hormone replacement therapy
CPT/HCPCS: 71046; 71250; 80048; 84703; 85027; 87389; 87631; 94640; 94664; 96365; 99285; J0696

== ENCOUNTER → 2021-05-06 | Outpatient (CLI) | payer OTHER ==
[~2021-05-06] MED LIST changes: +AZIT500T5 PO; +CEFD300C PO; +PRED20TA PO
[2021-05-06 14:19] LABS: FREE T4 1.41 NG/DL (0.76-1.46); THYROID STIMULATING HORMONE 0.282 uIU/ML (0.358-3.740)
== END ==
LOC: M PLALAB 10:57
PROVIDERS: ATTEND Internal Medicine Endocrinology, Diabetes & Metabolism
DX: E89.0 Postprocedural hypothyroidism (principal)

== ENCOUNTER → 2021-05-31 | Outpatient (CLI) | payer OTHER ==
[2021-06-10 01:08] LABS: STREP PNEUMO TYPE 1 0.2 ug/mL (>1.3); STREP PNEUMO TYPE 12F 0.2 ug/mL (>1.3); STREP PNEUMO TYPE 14 <0.1 ug/mL (>1.3); STREP PNEUMO TYPE 18C <0.1 ug/mL (>1.3); STREP PNEUMO TYPE 19A 1.1 ug/mL (>1.3); STREP PNEUMO TYPE 19F 0.3 ug/mL (>1.3); STREP PNEUMO TYPE 23F <0.1 ug/mL (>1.3); STREP PNEUMO TYPE 4 <0.1 ug/mL (>1.3); STREP PNEUMO TYPE 6B <0.1 ug/mL (>1.3); STREP PNEUMO TYPE 7F 0.1 ug/mL (>1.3); STREP PNEUMO TYPE 8 <0.1 ug/mL (>1.3); STREP PNEUMO TYPE 9N <0.1 ug/mL (>1.3); STREP PNEUMO TYPE 9V <0.1 ug/mL (>1.3)
== END ==
LOC: M PLALAB 13:24
PROVIDERS: ATTEND Family Medicine
DX: J18.9 Pneumonia, unspecified organism (principal)

== ENCOUNTER → 2021-07-14 | Outpatient (CLI) | payer OTHER | LOC: M PLALAB 14:31 | PROVIDERS: ATTEND Family Medicine | DX: E72.12 Methylenetetrahydrofolate reductase deficiency (principal) ==

== ENCOUNTER → 2021-09-14 | Outpatient (CLI) | payer OTHER ==
[2021-09-14 17:18] LABS: FREE T4 0.94 NG/DL (0.76-1.46); THYROID STIMULATING HORMONE 3.91 uIU/ML (0.358-3.740)
== END ==
LOC: M PLALAB 14:30
PROVIDERS: ATTEND Nurse Practitioner Family
DX: E89.0 Postprocedural hypothyroidism (principal)

== ENCOUNTER → 2021-12-20 | Outpatient (CLI) | payer OTHER ==
[2021-12-20 14:15] LABS: FREE T4 1.14 NG/DL (0.76-1.46); THYROID STIMULATING HORMONE 0.867 uIU/ML (0.358-3.740)
== END ==
LOC: M PLALAB 10:40
PROVIDERS: ATTEND Nurse Practitioner Family
DX: E89.0 Postprocedural hypothyroidism (principal)

== ENCOUNTER → 2021-12-30 | Outpatient (CLI) | payer OTHER | LOC: M WHC 09:46 | PROVIDERS: ATTEND Obstetrics & Gynecology | DX: N93.9 Abnormal uterine and vaginal bleeding, unspecified (principal); D25.9 Leiomyoma of uterus, unspecified ==

== ENCOUNTER → 2022-01-24 | Outpatient (CLI) | payer OTHER ==
[2022-01-24 11:09] LABS: HEMOGLOBIN A1c 5.2 %
[2022-01-24 11:41] LABS: C REACTIVE PROTEIN QUANTITATIV 0.42 MG/DL (0.00-0.30); FREE T4 0.95 NG/DL (0.76-1.46); RHEUMATOID FACTOR QUANT < 10.0 IU/ML (<15.0)
[2022-01-25 19:08] LABS: ANA (HEP2) Negative (.); INSULIN LEVEL 8.7 uIU/mL (2.6-24.9)
== END ==
LOC: M PLALAB 07:57
PROVIDERS: ATTEND Family Medicine
DX: E03.9 Hypothyroidism, unspecified (principal); E66.9 Obesity, unspecified; M25.50 Pain in unspecified joint
CPT/HCPCS: 36415; 82533; 83036; 83525; 84439; 84443; 85652; 86038; 86140; 86431; G0123; G0463

== ENCOUNTER → 2022-04-06 | Outpatient (CLI) | payer OTHER ==
[~2022-04-06] MED LIST changes: +LIOT5TAB6 PO; +VITMTA PO
== END ==
LOC: M LABSMTC 09:22
PROVIDERS: ATTEND Anesthesiology
DX: Z01.812 Encounter for preprocedural laboratory examination (principal); Z11.52 Encounter for screening for COVID-19

== ENCOUNTER 2022-04-11 11:19 | Day surgery (SDC) | payer OTHER ==
[~2022-04-11] VITALS: Ht 162.6 cm; Wt 94.3 kg
[2022-04-11 11:44] LABS: HEMATOCRIT 40.3 % (36.0-47.0); HEMOGLOBIN 13.4 g/dl (12.0-15.5); MEAN CORPUSCULAR HEMOGLOBIN 29.8 pg (27.0-33.0); MEAN CORPUSCULAR HGB CONC 33.3 g/dl (32.0-36.5); MEAN CORPUSCULAR VOLUME 89.8 fl (80.0-96.0); PLATELET COUNT, AUTOMATED 322 10^3/uL (150-450); RED BLOOD COUNT 4.49 10^6/uL (4.00-5.40)
[2022-04-11] MEDS ORDERED: LR 1,000 ML IV SCH ×2 (12:15→15:10)
[2022-04-11] MEDS ORDERED: fentaNYL 100 MCG/2 ML INJECTION As Ordered ONE (12:46)
[2022-04-11] MEDS ORDERED: LIDOCAINE 2% 100MG/5ML SDV (FOR ANES.) As Ordered ONE (12:46)
[2022-04-11] MEDS ORDERED: MIDAZOLAM INJ 2MG/2ML VIAL (J2250 PER 1MG) As Ordered ONE (12:46)
[2022-04-11] MEDS ORDERED: propofoL 200 MG/20 ML VIAL As Ordered ONE (12:46)
[2022-04-11] MEDS ORDERED: KETOROLAC 60MG 2ML VIAL As Ordered ONE (14:30)
[2022-04-11] MEDS ORDERED: ACETAMINOPHEN 1000MG 100ML IV BAG As Ordered ONE (14:30)
[2022-04-11] MEDS ORDERED: ONDANSETRON 4MG 2ML VIAL As Ordered ONE ×2 (14:30→15:12)
[2022-04-11] MEDS ORDERED: ePHEDrine SULFATE 25 MG/5 ML(5MG/ML) SYRINGE As Ordered ONE (14:41)
[2022-04-11] MEDS ORDERED: ONDANSETRON 4MG 2ML VIAL IV PRN (15:10)
[2022-04-11] MEDS ORDERED: fentaNYL 100 MCG/2 ML INJECTION IV PRN (15:10)
[2022-04-11] MEDS ORDERED: PERCOCET 5MG/325MG TAB PO PRN (15:10)
[2022-04-11] MEDS: HYDROMORPHONE HCL 0.5 MG/ 0.5 ML SYRINGE (J1170 PER 1) IV PRN ×4 (15:14→15:39)
[2022-04-11] MEDS: oxyCODONE 5MG TAB PO PRN ×2 (15:24→15:56)
[2022-04-11] MEDS ORDERED: METOCLOPRAMIDE INJ 10MG/2ML VIAL IV STA (16:18)
[2022-04-11 17:00] VITALS: BP 127/84
[2022-04-11] MEDS ORDERED: KETOROLAC 30 MG/ML 1ML VIAL IV SCH (21:00)
== END 2022-04-11 17:02 | disposition home or self-care (01) ==
LOC: M SDC 11:19
PROVIDERS: ATTEND Obstetrics & Gynecology
DX: N93.9 Abnormal uterine and vaginal bleeding, unspecified (principal); E03.9 Hypothyroidism, unspecified; J45.909 Unspecified asthma, uncomplicated; Z79.899 Other long term (current) drug therapy; G47.30 Sleep apnea, unspecified
CPT/HCPCS: 36415; 58563; 81025; 85027; 86850; 86900; 86901; 88305; J0131; J1100; J1170; J1885; J2250; J2405; J2765; J3010

== ENCOUNTER → 2022-08-05 | Outpatient (CLI) | payer OTHER ==
[2022-08-05 15:03] LABS: CALCIUM LEVEL 9.2 MG/DL (8.5-10.1)
[2022-08-05 15:08] LABS: FREE T4 1.32 NG/DL (0.89-1.76); THYROID STIMULATING HORMONE 1.562 uIU/ML (0.55-4.78)
== END ==
LOC: M PLALAB 10:00
PROVIDERS: ATTEND Nurse Practitioner Family
DX: E89.0 Postprocedural hypothyroidism (principal); E58 Dietary calcium deficiency

== ENCOUNTER → 2022-11-18 | Outpatient (CLI) | payer OTHER ==
[2022-11-18 10:53] LABS: FREE T4 1.36 NG/DL (0.89-1.76)
[2022-11-18 10:54] LABS: THYROID STIMULATING HORMONE 2.594 uIU/ML (0.55-4.78)
== END ==
LOC: M PLALAB 08:44
PROVIDERS: ATTEND Nurse Practitioner Family
DX: E89.0 Postprocedural hypothyroidism (principal)

== ENCOUNTER → 2022-11-18 | Outpatient (CLI) | payer OTHER ==
[2022-11-18 10:29] LABS: BASO % 0.6 % (0.0-1.0); EOS # 0.1 10^3/uL (0.0-0.5); EOS % 0.8 % (0.0-3.0); HEMATOCRIT 43.6 % (36.0-47.0); HEMOGLOBIN 14.5 g/dl (12.0-15.5); LYMPH # 1.6 10^3/uL (1.5-5.0); LYMPH % 22.1 % (24.0-44.0); MEAN CORPUSCULAR HEMOGLOBIN 29.8 pg (27.0-33.0); MEAN CORPUSCULAR HGB CONC 33.3 g/dl (32.0-36.5); MEAN CORPUSCULAR VOLUME 89.5 fl (80.0-96.0); MONO # 0.5 10^3/uL (0.0-0.8); MONO % 7.2 % (2.0-8.0); NEUTROPHILS % 68.9 % (36.0-66.0); PLATELET COUNT, AUTOMATED 328 10^3/uL (150-450); RED BLOOD COUNT 4.87 10^6/uL (4.00-5.40); WHITE BLOOD COUNT 7.2 10^3/uL (4.0-10.0)
[2022-11-18 11:18] LABS: ALKALINE PHOSPHATASE 66 U/L (46-116); ALT/SGPT 15 U/L (7.0-40); AST/SGOT < 8 U/L (<34); BILIRUBIN,TOTAL 0.6 MG/DL (0.3-1.2); BLOOD UREA NITROGEN 11 MG/DL (9-23); CALCIUM LEVEL 8.9 MG/DL (8.5-10.1); CARBON DIOXIDE LEVEL 26 MMOL/L (20-31); CHLORIDE LEVEL 102 MMOL/L (98-107); CHOLESTEROL LEVEL 188 MG/DL (<200); CREATININE FOR GFR 0.58 MG/DL (0.55-1.30); FREE T4 1.33 NG/DL (0.89-1.76); GLOMERULAR FILTRATION RATE > 60.0 (>60); GLUCOSE, FASTING 88 MG/DL (60-100); HDL CHOLESTEROL 62.5 MG/DL (>40); LDL CHOLESTEROL 106.9 MG/DL (<100); NON-HDL-C 125.5 MG/DL; POTASSIUM SERUM 4.5 MMOL/L (3.5-5.1); SODIUM LEVEL 137 MMOL/L (136-145); THYROID STIMULATING HORMONE 2.803 uIU/ML (0.55-4.78); TOTAL 25(OH) VITAMIN D 25.7 NG/ML (20.0-100.0); TRIGLYCERIDES LEVEL 93 MG/DL (<150)
== END ==
LOC: M PLALAB 08:41
PROVIDERS: ATTEND Family Medicine
DX: Z13.29 Encounter for screening for other suspected endocrine disorder (principal); Z13.0 Encounter for screening for diseases of the blood and blood-forming organs and certain disorders involving the immune mechanism; Z13.220 Encounter for screening for lipoid disorders; E03.9 Hypothyroidism, unspecified

== ENCOUNTER → 2023-04-06 | Outpatient (CLI) | payer OTHER ==
[2023-04-06 10:43] LABS: THYROID STIMULATING HORMONE 3.09 uIU/ML (0.55-4.78)
[2023-04-06 10:44] LABS: FREE T4 1.25 NG/DL (0.89-1.76)
== END ==
LOC: M PLALAB 08:35
PROVIDERS: ATTEND Nurse Practitioner Family
DX: E89.0 Postprocedural hypothyroidism (principal)